=== PATIENT | female | born 1955 | race Caucasian/White ===

== ENCOUNTER → 2016-08-16 | Outpatient (CLI) | payer BC ==
--- NOTE | 2016-08-16 11:30 | NM ---
EXAMINATION TYPE: NM stress cardiolite complete DATE OF EXAM: 08/16/2016 11:21 AM COMPARISON: NONE HISTORY: Pain TECHNIQUE: After the intravenous administration of 10.15 mCi Tc 99m Sestamibi - Rest images obtained 35 minutes post injection. The patient exercised using a SOPHY protocol and 1 minute prior to peak exercise was injected with 26.3 mCi Tc 99m Sestamibi - Stress images obtained 35 minutes post inject ion. FINDINGS: Targeted heart rate was achieved during performance of the study. Review of stress and rest SPECT karissa ges demonstrates no distinct perfusion abnormality. Gated analysis shows normal wall motion with an estimated left ventricular ejection fraction of 64 %. IMPRESSION: No scintigraphic evidence for reversible ischemia
--- NOTE | 2016-08-16 13:40 | EST ---
DATE OF SERVICE: 08/16/16 AGE: 61Y SEX: F HT: 5'1" WT: 202 lbs. Protocol Josep: Other: X Stage: 2 Dur. of Exercise: 4:30 *Heart Rate Blood Pressure *Rest: 79 Rest: 142/74 * *Max. Achieved: 144 Maximum BP: 169/82 85% PMHR: 137 100% PMHR: 161 *METS: 6.4 INDICATIONS: MEDICATIONS: Baseline EKG revealed normal sinus rhythm without significant ST-T changes. There is some poor R wave progression over precordial leads, which may be related to lead placement. Patient walked for 4-1/2 minutes, achieved a maximum heart rate of 144 beats more than 85% of predicted maximal. Developed fatigue and shortness of breath, but did not have any angina or arrhythmia. Rare PVCs were noted. EKG did not reveal any clear cut ST segment changes to indicate ischemia. By EKG criteria, this is considered as a negative stress test with limited exercise capacity with mild resting EKG changes of a nonspecific type. The nuclear scan results, which are more pertinent, will be reported by the radiologist.
== END | disposition home or self-care (01) ==
LOC: RADNMMAIN 08:51
PROVIDERS: ATTEND Family Medicine
DX: R06.02 Shortness of breath (principal); R00.2 Palpitations; R07.9 Chest pain, unspecified; R94.31 Abnormal electrocardiogram [ECG] [EKG]
CPT/HCPCS: 93017; 78452; A9500

== ENCOUNTER → 2017-02-18 | Outpatient (CLI) | payer BC ==
--- NOTE | 2017-02-21 08:16 | MM ---
Reason for exam: screening (asymptomatic). Last mammogram was performed 1 year ago. History: Patient is postmenopausal. Family history of breast cancer in aunt at age 58, breast cancer in maternal cousin, and breast cancer in paternal cousin at age 28. Took hormonal contraceptives for 8 years. Taking estrogen for 2 years beginning at age 54. Taking progesterone for 2 years beginning at age 54. Physical Findings: A clinical breast exam by your physician is recommended on an annual basis and results should be correlated with mammographic findings. MG Screening Mammo w CAD Bilateral CC and MLO view(s) were taken. Prior study comparison: February 18, 2016, bilateral MG screening mammo w CAD. June 17, 2014, left breast MG work up mamm w CAD LT. The breast tissue is heterogeneously dense. This may lower the sensitivity of mammography. There is no discrete abnormality. No significant changes when compared with prior studies. ASSESSMENT: Negative, BI-RAD 1 RECOMMENDATION: Routine screening mammogram of both breasts in 1 year.
== END | disposition home or self-care (01) ==
LOC: RADMAMWWP 08:01
PROVIDERS: ATTEND Obstetrics & Gynecology
DX: Z12.31 Encounter for screening mammogram for malignant neoplasm of breast (principal); Z80.3 Family history of malignant neoplasm of breast

== ENCOUNTER 2017-08-04 10:29 | Day surgery (SDC) | payer BC ==
[2017-08-03 09:41] VITALS: BMI 38.7
[~2017-08-04 10:29] MED LIST: LACTATED RINGERS 1,000 ML IV SCH
[2017-08-04 10:47] VITALS: RESP 16; TEMP 97.7
[2017-08-04] MEDS ORDERED: LIDOCAINE 1% 20 ML VIAL (10MG/ML) FOR IV START INTRADERMA ONE (10:59)
[2017-08-04 11:03] LABS: Glucose,Whole Blood 96 mg/dL (75-99)
[2017-08-04] MEDS ORDERED: PROPOFOL 10 MG/ML 20 ML VIAL IV ONE (11:27)
[2017-08-04] MEDS ORDERED: LIDOCAINE 1% INJ 10MG/ML (20 ML MDV) ONE (11:27)
--- NOTE | 2017-08-04 11:46 | P.PCN ---
Date of Procedure: 08/04/17 Procedure(s) Performed: BRIEF HISTORY: Patient is a 62-year-old pleasant female, scheduled for an elective colonoscopy as a part of screening for colorectal neoplasia. Last colonoscopy was 10 years ago. PROCEDURE PERFORMED: Colonoscopy. PREOPERATIVE DIAGNOSIS: Screening for colon cancer. IV sedation per Anesthesia. PROCEDURE: After informed consent was obtained, the patient, was brought into the endoscopy unit. IV sedation was administered by Anesthesia under continuous monitoring. Digital rectal examination was normal. Initially the Olympus CF- 160 flexible video colonoscope was then inserted in the rectum, gradually advanced into the cecum without any difficulty. Careful examination was performed as the scope was gradually being withdrawn. Ileocecal valve and the appendiceal orifice were visualized and appeared normal. Prep was excellent. Mucosa of the cecum, ascending colon, transverse colon, descending colon, sigmoid colon, and rectum appeared normal. scattered sigmoid diverticulosis. Retroflexion was performed in the rectum and no lesions were seen. The patient tolerated the procedure well. IMPRESSION: Normal-appearing colon from rectum to cecum with no evidence of colorectal neoplasia . scattered sigmoid diverticulosis. RECOMMENDATIONS: Findings of this examination were discussed with the patient she was advised to have a repeat screening colonoscopy in 10 years.
[2017-08-04 12:22] VITALS: BP 141/62; PULSE 77
== END 2017-08-04 12:38 | disposition home or self-care (01) ==
LOC: ORWHC2ENDO 10:29
PROVIDERS: ATTEND Internal Medicine Gastroenterology
DX: Z12.11 Encounter for screening for malignant neoplasm of colon (principal); K57.30 Diverticulosis of large intestine without perforation or abscess without bleeding; I10 Essential (primary) hypertension; K21.9 Gastro-esophageal reflux disease without esophagitis; Z79.899 Other long term (current) drug therapy; Z79.1 Long term (current) use of non-steroidal anti-inflammatories (NSAID); Z88.1 Allergy status to other antibiotic agents
CPT/HCPCS: J2001; J2704; G0121; 45378

== ENCOUNTER → 2018-02-03 | Outpatient (CLI) | payer BC ==
[2018-02-03 16:29] LABS: HGB 13.5 gm/dL (11.4-16.0); MCH 27.4 pg (25.0-35.0); MCHC 32.9 g/dL (31.0-37.0); MCV 83.4 fL (80.0-100.0); Mean Platelet Volume 7.2; Platelet Count 337 k/uL (150-450); RBC 4.91 m/uL (3.80-5.40); RDW 14.3 % (11.5-15.5); WBC 8.9 k/uL (3.8-10.6)
[2018-02-03 16:35] LABS: ALT 36 U/L (9-52); AST 27 U/L (14-36); Albumin 4.4 g/dL (3.5-5.0); Alkaline Phosphatase 64 U/L (38-126); Anion Gap 9 mmol/L; Blood Urea Nitrogen 20 mg/dL (7-17); Calcium 9.7 mg/dL (8.4-10.2); Carbon Dioxide 29 mmol/L (22-30); Chloride 101 mmol/L (98-107); Glucose 84 mg/dL (74-99); Partial Thromboplastin Time 23.1 sec (22.0-30.0); Potassium 5.6 mmol/L (3.5-5.1); Prothrombin Time 9.5 sec (9.0-12.0); Sodium 139 mmol/L (137-145); Total Bilirubin 0.3 mg/dL (0.2-1.3); Total Protein 7.3 g/dL (6.3-8.2)
[2018-02-03 16:44] LABS: Appearance,Urine Cloudy (Clear); Bacteria,Urine Few /hpf; Bilirubin,Urine Negative (Negative); Blood,Urine Negative (Negative); Color,Urine Yellow; Glucose,Urine (UA) Negative (Negative); Hyaline Casts,Urine 3 /lpf (0-2); Ketones,Urine Negative (Negative); Leukocyte Esterase,Urine Small (Negative); Mucus,Urine Occasional /hpf; Nitrite,Urine Negative (Negative); Protein,Urine Trace (Negative); RBC,Urine 3 /hpf (0-5); Specific Gravity,Urine 1.023 (1.001-1.035); Squamous Epithelial Cell,Urine 3 /hpf (0-4); Urobilinogen,Urine <2.0 mg/dL (<2.0); WBC,Urine 3 /hpf (0-5)
== END | disposition home or self-care (01) ==
LOC: LABPAT 15:23
PROVIDERS: ATTEND Orthopaedic Surgery Sports Medicine
DX: Z01.812 Encounter for preprocedural laboratory examination (principal)
CPT/HCPCS: 80053; 81001; 85027; 85610; 85730; 87070

== ENCOUNTER 2018-02-16 11:01 | Inpatient (IN) | payer BC ==
[2018-02-06 16:27] VITALS: BMI 40.0
[~2018-02-16 11:01] MED LIST changes: +ACETAMINOPHEN TAB 500 MG TAB PO ONE; +DEXAMETHASONE SOD PHOSPHATE 10 MG/ML 1 ML VIAL IV ONE; +HYDROmorphone 0.5 MG/0.5 ML SYRINGE IVP PRN; -LACTATED RINGERS 1,000 ML IV SCH; +ONDANSETRON 4 MG/2 ML VIAL IVP ONE; +TRANEXAMIC ACID 1,000 MG in SODIUM CHLORIDE 0.9% 50 ML IVPB ONE; +ceFAZolin IN SWFI 2 GM/20 ML SYRINGE IVP ONE
[2018-02-16] MEDS ORDERED: LIDOCAINE 1% 20 ML VIAL (10MG/ML) FOR IV START INTRADERMA ONE (11:33)
[2018-02-16] MEDS ORDERED: MIDAZOLAM 2 MG/2 ML VIAL ONE ×2 (12:46→12:59)
[2018-02-16] MEDS: LACTATED RINGERS 1,000 ML IV SCH ×2 (12:56→17:48)
[2018-02-16] MEDS ORDERED: fentaNYL (PF) 50 MCG/ML 2 ML AMP ONE (12:59)
[2018-02-16] MEDS ORDERED: SODIUM CHLORIDE 0.9% 100 ML BAG ONE (12:59)
[2018-02-16] MEDS ORDERED: PROPOFOL 10 MG/ML 20 ML VIAL IV ONE (12:59)
[2018-02-16] MEDS ORDERED: diphenhydrAMINE 50 MG/ML 1 ML VIAL ONE (12:59)
[2018-02-16] MEDS ORDERED: TRANEXAMIC ACID 1,000 MG/10 ML VIAL ONE (12:59)
[2018-02-16] MEDS: ROPIVACAINE 246.25 MG, EPINEPHrine 0.5 MG, KETOROLAC 30 MG, cloNIDine HCL/PF 80 MCG, WA... MISCELLANE ONE ×15 (13:40→14:28)
[2018-02-16] MEDS ORDERED: ceFAZolin 3,000 MG in SODIUM CHLORIDE 0.9% IRRIGATIO 3,000 ML IRRIGATION ONE (13:40)
[2018-02-16] MEDS ORDERED: TEMAZEPAM 15 MG CAP PO PRN (15:10)
[2018-02-16] MEDS ORDERED: HYDROmorphone 0.5 MG/0.5 ML SYRINGE IVP PRN ×3 (15:10)
[2018-02-16] MEDS ORDERED: ACETAMINOPHEN TAB 325 MG TAB PO PRN (15:10)
[2018-02-16] MEDS ORDERED: DIAZEPAM 5 MG TAB PO PRN (15:10)
[2018-02-16] MEDS ORDERED: NALOXONE 0.4 MG/ML 1 ML VIAL IV PRN (15:10)
[2018-02-16] MEDS ORDERED: MAGNESIUM HYDROXIDE 2,400 MG/10 ML CUP PO PRN (15:10)
[2018-02-16] MEDS ORDERED: NA PHOS,M-B/NA PHOS,DI-BA 133 ML ENEMA RECTAL PRN (15:10)
[2018-02-16] MEDS ORDERED: BISACODYL 10 MG SUPP RECTAL PRN (15:10)
[2018-02-16] MEDS ORDERED: traMADol 50 MG TAB PO PRN (15:10)
[2018-02-16] MEDS ORDERED: ONDANSETRON 4 MG/2 ML VIAL IVP PRN (15:10)
[2018-02-16] MEDS ORDERED: HYDROcodone/APAP 7.5-325MG 1 EACH TAB PO PRN (15:10)
[2018-02-16] MEDS ORDERED: HYDROmorphone 1 MG/ML 1 ML SYRINGE IVP ONE (15:16)
[2018-02-16] MEDS ORDERED: diphenhydrAMINE 50 MG/ML 1 ML VIAL IVP ONE (15:28)
--- NOTE | 2018-02-16 15:34 | XR ---
EXAMINATION TYPE: XR knee limited RT DATE OF EXAM: 02/16/2018 CLINICAL HISTORY: Right knee pain and arthritis status post total knee replacement. TECHNIQUE: Portable AP and crosstable lateral views of the right knee are obtained immediately posto peratively. COMPARISON: Right knee x-ray January 30, 2014 FINDINGS: Metallic hardware from total right knee arthroplasty is seen and appears satisfactory in a lignment and position. There is evidence of recent surgery with diffuse subcutaneous gas anteriorly and superiorly noted. IMPRESSION: METALLIC HARDWARE FROM TOTAL RIGHT KNEE ARTHROPLASTY IS SATISFACTORY IN ALIGNMENT.
[2018-02-16] MEDS ORDERED: MEPERIDINE 50 MG/ML SYRINGE IVP ONE ×2 (15:41→15:46)
--- NOTE | 2018-02-16 16:06 | OP ---
OPERATIVE REPORT PROCEDURE: 02/16/2018. SURGEON: Ernesto Franklin M.D. PRIME MINISTER: Ac POZO. PREOPERATIVE DIAGNOSIS: Right knee osteoarthrosis. POSTOPERATIVE DIAGNOSIS: Right knee osteoarthrosis. OPERATION: Right total knee arthroplasty. ANESTHESIA: Spinal with sedation. ESTIMATED BLOOD LOSS: 100 mL. TOURNIQUET TIME: 53 minutes at 250 mmHg. COMPLICATIONS: None apparent. DRAINS: None. DISPOSITION: Postanesthesia care unit. INDICATIONS: Katie is a 62-year-old female with longstanding history of right knee pain. History and physical examination are consistent with advanced right knee osteoarthrosis. She has been through significant nonoperative management up to this point. Further treatment options were discussed and she has decided to go for the right total knee arthroplasty. The risks of procedure were discussed with her in detail. These risks include, but are not limited to risk of infection, nerve damage, bleeding, pain and risk of deep vein thrombosis which could lead to fatal pulmonary embolism. There is also risk of loosening of the implant which could require revision operation. The patient understands these risks. All of her questions with regards to the procedure were answered to her satisfaction. Appropriate informed consent was obtained. DESCRIPTION OF THE PROCEDURE: The patient was identified in the preoperative holding area. Surgical sites marked by both the patient and myself. She was given 2 g of Ancef IV for prophylactic purposes. She was then transferred to the operative suite. She was placed supine on the operative table. Spinal anesthetic was administered and dosed per the anesthesia without apparent complication. Examination under anesthesia was then performed. The patient had near full extension. She had 100 degrees of flexion in the medial collateral ligament, lateral collateral ligament. Posterior cruciate ligaments were stable. Tourniquet was then placed high on the right upper thigh well-padded in preparation for surgery. The patient's right lower extremity was then prepped and draped in usual sterile fashion. Standard surgical pause undertaken to ensure that we were operating on the correct site and that appropriate preoperative antibiotics were given. All staff in the room in agreement and we proceeded. The outlines of the patella were marked with surgical pen. A planned 12 cm vertical incision centered over the patella and was marked surgical pen. The leg was then exsanguinated with an Esmarch dressing. The knee was then flexed and tourniquet was inflated to 250 mmHg. The total tourniquet time for the procedure was 53 minutes. Incision was then made with a 10 blade scalpel. Dissection carried down sharply to the overlying fascia. Great care was taken to minimize the skin flaps. The knee was then exposed. Using a standard medial parapatellar approach, a small cuff of quadriceps tendon was left for suturing. She was in a bit of varus preoperatively. A standard medial release was then made. Superficial medial collateral ligaments was dissected off of the bone around the posterior aspect of the proximal tibia. The medial meniscus was then excised as well. The lateral meniscus was also released anteriorly. The leg was then externally rotated. The patella was everted. The knee was flexed. The retractors were then placed to protect the collateral ligaments. I then proceeded to remove the infrapatellar fat pad. This was excised sharply tangentially with fibers of the patellar tendon. I then proceeded to remove peripheral osteophytes. This was done with a rongeur. I then proceeded with the distal femoral resection. She did have near full extension. A planned 9 mm resection was then done. The femoral canal was then entered in the midline of the femur approximately 10 mm anterior to the origin of the posterior cruciate ligament. The britney was then advanced down the center of the femur and placed intramedullary. Based on preoperative radiographs, the angle between the anatomic and mechanical axis of the femur was approximately 4 to 5 degrees. The valgus angle distal femoral cutting guide was then set at 4 degrees for the right knee. The distal femoral cutting guide was then advanced over the intramedullary britney. This was seated firmly against the femur. I then as mentioned planned to take 9 mm off the distal femur. The cutting block was then secured onto the femur with pins. The jig was removed and the distal femoral cut was made through the slot of the block. The pins were then removed. The distal femoral cutting block was removed. The accuracy of this femoral cuts was checked with 2 flat bars. I then proceed to femoral sizing. The posterior referencing sizing guide was held firmly against the resected distal surface of the femur. Posterior condyles were resting on the posterior plane of the guide. The sizing stylus was then placed onto the anterior femur. The size was measured as a size 6. I then assessed for femoral rotation. The plan was for 3 degrees of external rotation. Three degrees of external rotation was placed onto the jig. These holes were then marked. I then confirmed the rotation by 3 separate methods. This was done using epicondylar axis as well as [place] line and posterior referencing. It was deemed that the external rotation was proper. I then went forward with placing the femoral cutting block. This was placed over the over the previously placed pin holes. The Beny wing was then placed on the anterior slots to ensure that we would not notch the anterior femur with the anterior femoral cut. I then proceed with the anterior femoral cut. This was flush with the anterior cortex of the femur. Posterior cuts were then made followed by the anterior chamfer cut, then the posterior chamfer cut. The cutting block was then removed. Throughout the resection, the collateral ligaments were protected with retractors. I then placed a trial size 6 femur. It was a slightly wide mediolateral but the narrow was appropriate and fit flush with the distal end of the femur. The drill holes were then made. I then proceeded with the tibial cut. I planned for cruciate retaining knee. The guide was placed and set for varus valgus and for slope. The height was set for approximate 2 mm resection from the medial tibial plateau which was the lower side. I was happy with the alignment amount of resection. The cutting block was then pinned to the proximal tibia. The alignment britney was removed and the proximal tibia was resected with a reciprocating saw. Again this was done with retractors protecting the collateral ligaments as well as the posterior cruciate ligament. I then proceeded to evaluate the flexion extension gaps. A 10 mm block was then placed. The flexion-extension gaps were equal. I then proceeded to resection of posterior osteophytes. She had very minimal posterior osteophytes. This was done using a curved osteotome. This resected the posterior osteophytes and posterior capsule stripping was also done off the posterior aspect of the femur at this time. The osteophytes were removed. I then proceeded with resection of the patella. The thickness of patella was measured using the caliper. The thickness was 22 mm. The thickness of the anticipated patellar dome was taken into account. The resection was then performed and confirmed to be equal in 4 quadrants using a caliper. Approximately 14 mm of bone remained after the resection. A 29 x 8 mm standard patella was then placed. The holes were then drilled. The trial was then placed. I then proceeded with the sizing the tibial plate. A size C tibial plate fit very nicely. I then placed the trial femur in the tibial tray and patellar button. A 10 mm trial tibial insert was also placed. The components fit nice very nicely. She had full flexion and extension. The extension and flexion gaps were equal and stable with varus and valgus stress. The patella tracked appropriately. Tibial tray rotation was marked with a Bovie. This was externally rotated properly. I then proceed with tibial preparation. I first drilled the femoral holes and removed femoral component. The tibial tray was then set for proper external rotation as well as mediolateral placement onto the tibia. It was then pinned into place. I then proceeded with punching the keel. I then decided to proceed with cementing of all our components. The knee was thoroughly irrigated with sterile saline solution via pulse lavage. The lateral geniculate artery was identified and cauterized. All blood was removed from the bone of the tibia femur and patella with pulse lavage. I then proceed with cementing. Two packs of antibiotic bone cement prepared on the back table by the instructor adjunct surgical technician. I then proceed with cementing the tibia first. The cement was impacted into the keel as well as deeply seated in the bone. A second coat of cement was then placed. The tibia was then impacted into place. Excess cement was removed with [place]'s and jokers. I then proceed with cementing the femoral component. The femoral component was also cemented using 2 using standard technique. Excess cement was removed. A 10 mm trial insert was placed into the knee. It was brought into full extension with a constant axial load placed until the cement had hardened. The patellar component was then cemented. This was held firmly with a compressive device until the cement had dried. When the cement had dried, the knee was taken out of extension. All excess cement was removed from around the prosthesis. I then trialed the knee with a 10 mm insert. The flexion-extension gaps were appropriate. The knee came in the knee was stable with a 10 mm insert. It came into full extension. I decided to go forward with the 10 mm cross-linked cruciate-retaining tibial insert. Polyethylene was then placed onto the tibial tray and locked into place. The knee was then reduced. The knee was again further irrigated with sterile saline solution with antibiotic added. The tourniquet was then deflated. Total tourniquet time for the procedure was 53 minutes at 250 mmHg. Final components were Erickson Persona size 6 narrow cruciate retained femoral component, a size C tibial tray, 10 mm medial congruent cruciate-retaining polyethylene insert and a 29 x 8 mm patella. I then proceeded with closure. Again, the knee was thoroughly irrigated. The quadriceps tendon and the medial retinaculum were reapproximated with #2 Ethibond suture. The extensor mechanism was then closed with a running #2 Quill suture. Subcutaneous tissues were then closed with 2-0 Vicryl interrupted suture. The skin was closed with a running 3-0 Quill suture. Dermabond was applied to the incision. Sterile compressive dressing was then applied. All sponge and needle counts were deemed correct prior to closure. The patient tolerated the procedure without apparent complication. She was transferred to the recovery room in stable condition. MMODL / IJN: [id number] /
[2018-02-16] MEDS ORDERED: LACTATED RINGERS 1,000 ML IV ONE (16:39)
[2018-02-16] MEDS: HYDROcodone/APAP 7.5-325MG 1 EACH TAB PO PRN ×2 (17:20→22:31)
[2018-02-16 19:21] LABS: Basophils % (A) 0 %; Eosinophils % (A) 0 %; HCT 37.9 % (34.0-46.0); HGB 12.6 gm/dL (11.4-16.0); Lymphocytes # (A) 0.6 k/uL (1.0-4.8); Lymphocytes % (A) 4 %; MCH 28.1 pg (25.0-35.0); MCHC 33.3 g/dL (31.0-37.0); MCV 84.4 fL (80.0-100.0); Mean Platelet Volume 7.3; Monocytes # (A) 0.2 k/uL (0-1.0); Monocytes % (A) 2 %; Neutrophils % (A) 94 %; Platelet Count 317 k/uL (150-450); RBC 4.49 m/uL (3.80-5.40); RDW 14.6 % (11.5-15.5); WBC 14.9 k/uL (3.8-10.6)
[2018-02-16 19:35] LABS: Anion Gap 6 mmol/L; Blood Urea Nitrogen 16 mg/dL (7-17); Carbon Dioxide 27 mmol/L (22-30); Chloride 104 mmol/L (98-107); Glucose 163 mg/dL (74-99); Potassium 5.3 mmol/L (3.5-5.1); Sodium 137 mmol/L (137-145)
[2018-02-16 20:46] LABS: Appearance,Urine Clear (Clear); Bilirubin,Urine Negative (Negative); Blood,Urine Negative (Negative); Color,Urine Yellow; Glucose,Urine (UA) Negative (Negative); Ketones,Urine 1+ (Negative); Leukocyte Esterase,Urine Negative (Negative); Nitrite,Urine Negative (Negative); Protein,Urine Trace (Negative); Specific Gravity,Urine 1.018 (1.001-1.035); Urobilinogen,Urine <2.0 mg/dL (<2.0)
[2018-02-16] MEDS: ASPIRIN 325 MG TAB PO SCH (21:22)
[2018-02-16] MEDS: SENNOSIDES-DOCUSATE SODIUM 1 EACH TAB PO SCH (21:22)
[2018-02-16] MEDS: SULFAMETHOX-TMP 800-160MG 1 EACH TAB PO SCH (21:23)
[2018-02-16] MEDS: ceFAZolin IN SWFI 2 GM/20 ML SYRINGE IVP SCH (21:23)
[2018-02-17] MEDS: LACTATED RINGERS 1,000 ML IV SCH ×4 (01:43→23:14)
[2018-02-17] MEDS: HYDROcodone/APAP 7.5-325MG 1 EACH TAB PO PRN ×3 (04:52→15:38)
[2018-02-17] MEDS: ceFAZolin IN SWFI 2 GM/20 ML SYRINGE IVP SCH (04:53)
[2018-02-17] MEDS: ASPIRIN 325 MG TAB PO SCH ×2 (08:33→23:13)
[2018-02-17] MEDS: SULFAMETHOX-TMP 800-160MG 1 EACH TAB PO SCH ×2 (08:33→23:13)
--- NOTE | 2018-02-17 08:34 | P.DS ---
Providers Date of admission: 02/16/18 11:01 Expected date of discharge: 02/17/18 Attending physician: Ernesto Franklin Consults: 02/16/18 15:10 Consult Physician Routine Consulting Provider: Nestor Allen Consult Reason/Comments: post op medical management Do you want consulting provider notified?: Yes Primary care physician: Lanette Luna - Discharge Diagnosis(es) (1) Primary osteoarthritis of right knee Current Visit: Yes Status: Acute (2) S/P total knee arthroplasty Current Visit: Yes Status: Acute Hospital Course: This is a 62-year-old female with known history of degenerative arthritis of the right knee. The patient presents for evaluation. After discussion and consideration patient elects to proceed with total knee arthroplasty. The patient is seen preoperatively by Dr. Franklin and medically cleared for surgery by their primary care physician. Patient is admitted to [facility] on 02/16/2018 for total knee arthroplasty. The procedures performed without complication or sequelae. The patient is doing well postoperatively. Labs and vital signs are stable on day of discharge. On day of discharge patient's knee incision is healing well. There is minimal erythema. There is no drainage noted at this time. There is minimal soft tissue swelling to the knee. Patient has full foot and ankle motion without difficulty or pain. Neurovascular status to the right lower extremity is intact. Patient is discharged home in good condition. Please see med rec for accurate list of home medications. Plan - Discharge Summary Discharge Rx Participant: Yes New Discharge Prescriptions: New Aspirin 325 mg PO BID #60 tab Docusate [Colace] 100 mg PO BID #60 capsule HYDROcodone/APAP 7.5-325MG [Sargent 7.5-325] 1 - 2 tab PO Q6HR PRN #60 tab PRN Reason: Pain No Action Omeprazole 20 mg PO HS Citalopram Hydrobromide [CeleXA] 20 mg PO HS Ibuprofen 800 mg PO BID PRN PRN Reason: Pain Glucosamine/Chondr Amin A Sod [Osteo Bi-Flex Caplet] 1 tab PO DAILY Hydrochlorothiazide 12.5 mg PO DAILY Albuterol Inhaler [Ventolin Hfa Inhaler] 1 - 2 puff INHALATION RT-Q6H PRN PRN Reason: Shortness Of Breath Multivit-Min/Iron/Folic/Lutein [Centrum Silver Women Tablet] 1 tab PO DAILY Calcium Carbonate/Vitamin D3 [Calcium 600-Vit D3 200 Tablet] 1 tab PO BID Biotin 5 mg PO DAILY Acetaminophen [Tylenol Arthritis] 650 mg PO BID PRN PRN Reason: pain Sulfamethox-Tmp 800-160Mg [Bactrim DS 800-160 mg] 1 tab PO Q12HR Discharge Medication List Albuterol Inhaler [Ventolin Hfa Inhaler] 1 - 2 puff INHALATION RT-Q6H PRN [History] Citalopram Hydrobromide [CeleXA] 20 mg PO HS 08/03/17 [History] Glucosamine/Chondr Amin A Sod [Osteo Bi-Flex Caplet] 1 tab PO DAILY 08/03/17 [ History] Hydrochlorothiazide 12.5 mg PO DAILY 08/03/17 [History] Ibuprofen 800 mg PO BID PRN 08/03/17 [History] Omeprazole 20 mg PO HS 08/03/17 [History] Acetaminophen [Tylenol Arthritis] 650 mg PO BID PRN 02/06/18 [History] Biotin 5 mg PO DAILY 02/06/18 [History] Calcium Carbonate/Vitamin D3 [Calcium 600-Vit D3 200 Tablet] 1 tab PO BID [History] Multivit-Min/Iron/Folic/Lutein [Centrum Silver Women Tablet] 1 tab PO DAILY 09/25 [History] Sulfamethox-Tmp 800-160Mg [Bactrim DS 800-160 mg] 1 tab PO Q12HR 02/06/18 [ History] Aspirin 325 mg PO BID #60 tab 02/16/18 [Rx] Docusate [Colace] 100 mg PO BID #60 capsule 02/16/18 [Rx] HYDROcodone/APAP 7.5-325MG [Sargent 7.5-325] 1 - 2 tab PO Q6HR PRN #60 tab [Rx] Follow up Appointment(s)/Referral(s): Ernesto Franklin MD [STAFF PHYSICIAN] - 2 Weeks Activity/Diet/Wound Care/Special Instructions: Keep wound clean and dry Take meds as directed Follow-up with Dr. Franklin in office Weight bear as tolerated May shower in 3 days if no bleeding Discharge Disposition: HOME WITH HOME HEALTH SERVICES
[2018-02-17 08:44] LABS: HCT 32.9 % (34.0-46.0); HGB 11.3 gm/dL (11.4-16.0); MCH 28.5 pg (25.0-35.0); MCHC 34.3 g/dL (31.0-37.0); MCV 83.1 fL (80.0-100.0); Mean Platelet Volume 7.8; Platelet Count 253 k/uL (150-450); RBC 3.96 m/uL (3.80-5.40); RDW 14.4 % (11.5-15.5); WBC 10.6 k/uL (3.8-10.6)
[2018-02-17 09:30] LABS: Band Neutrophils % 2 %; Lymphocytes # (M) 0.95 k/uL (1.0-4.8); Monocytes # (M) 0.74 k/uL (0-1.0); Neutrophils % (M) 82 %; Nucleated Red Blood Cells 0 /100 WBC (0-0); Total Cells Counted 100
[2018-02-17] MEDS: hydrOXYzine PAMOATE 25 MG CAP PO PRN ×3 (10:30→19:39)
[2018-02-17] MEDS: MULTIVITAMINS, THERA 1 EACH TAB PO SCH (11:49)
--- NOTE | 2018-02-17 14:47 | P.CONS ---
History of Present Illness - Reason for Consult Consult date: 02/17/18 Medical management of hypertension - Chief Complaint Right knee arthroplasty elective - History of Present Illness Patient is a 62-year-old female with a known history of hypertension, GERD and previous history of smoking as well as osteoarthritis was admitted to the hospital for elective right total arthroplasty. Patient tolerated the procedure very well. Otherwise patient still complaining of pain in his fairly controlled with pain medications. No fever no chills. Patient did have some dizziness with walking this morning otherwise currently denied any dizziness or lightheadedness. No nausea vomiting or abdominal pain. Tolerating oral diet. No chest pain or short of breath. No nausea vomiting. No fever no chills. Blood pressure is controlled. Review of Systems Constitutional: Patient denies any fever or chills . No generalized weakness or weight loss. Abdomen: Patient denied nausea vomiting and diarrhea and abdominal pain. Cardiovascular: Patient denies any chest pain or short of breath no palpitations. Respiratory: patient denied any cough is from production. No shortness of breath Neurologic: Patient denied any numbness or tingling headache. Musculoskeletal: Patient denies any complaints of joint swelling or deformity. Right knee pain and decreased range of motion Skin: Negative Psychiatric: Negative Endocrine: No heat or cold intolerance. No recent weight gain. Genitourinary: No dysuria or hematuria. All other 14 point ROS negative except the above Past Medical History Past Medical History: GERD/Reflux, Hypertension, Osteoarthritis (OA) Additional Past Medical History / Comment(s): current UTI, sciatica,torn meniscus left knee approx 2014 History of Any Multi-Drug Resistant Organisms: None Reported Past Surgical History: Orthopedic Surgery Additional Past Surgical History / Comment(s): Rt ovary removed,rt knee arthroscopy,rt rot cuff Past Anesthesia/Blood Transfusion Reactions: No Reported Reaction Additional Past Anesthesia/Blood Transfusion Reaction / Comm: no hx blood transfusion Past Psychological History: Anxiety Smoking Status: Former smoker Past Alcohol Use History: Occasional Additional Past Alcohol Use History / Comment(s): smoked while in college <1ppd Past Drug Use History: None Reported - Past Family History Mother Family Medical History: Cancer Additional Family Medical History / Comment(s): kidney Father Family Medical History: Cancer Additional Family Medical History / Comment(s): lung Medications and Allergies Home Medications Medication Instructions Recorded Confirmed Type Albuterol Inhaler [Ventolin Hfa 1 - 2 puff INHALATION RT-Q6H PRN 08/03/17 History Inhaler] Citalopram Hydrobromide [CeleXA] 20 mg PO HS 08/03/17 02/16/18 History Glucosamine/Chondr Amin A Sod [Osteo 1 tab PO DAILY 08/03/17 02/16/18 History Bi-Flex Caplet] Hydrochlorothiazide 12.5 mg PO DAILY 08/03/17 02/16/18 History Ibuprofen 800 mg PO BID PRN 08/03/17 02/16/18 History Omeprazole 20 mg PO HS 08/03/17 02/16/18 History Acetaminophen [Tylenol Arthritis] 650 mg PO BID PRN 02/06/18 02/16/18 History Biotin 5 mg PO DAILY 02/06/18 02/16/18 History Calcium Carbonate/Vitamin D3 1 tab PO BID 02/06/18 02/16/18 History [Calcium 600-Vit D3 200 Tablet] Multivit-Min/Iron/Folic/Lutein 1 tab PO DAILY 02/06/18 02/16/18 History [Centrum Silver Women Tablet] Sulfamethox-Tmp 800-160Mg [Bactrim 1 tab PO Q12HR 02/06/18 02/16/18 History DS 800-160 mg] Aspirin 325 mg PO BID #60 tab 02/16/18 Rx Docusate [Colace] 100 mg PO BID #60 capsule 02/16/18 Rx HYDROcodone/APAP 7.5-325MG [[place] 1 - 2 tab PO Q6HR PRN #60 tab 02/16/18 Rx 7.5-325] Allergies Allergy/AdvReac Type Severity Reaction Status Date / Time erythromycin base Allergy Rash/Hives Verified 02/16/18 16:53 Physical Exam Vitals: Vital Signs Temp Pulse Pulse Resp BP BP Pulse Ox 02/17/18 07:00 98.4 F 94 17 132/88 94 L 02/16/18 23:44 18 02/16/18 23:30 99.9 F H 72 18 110/53 95 02/16/18 19:33 98.2 F 74 18 118/74 95 02/16/18 16:56 98.7 F 83 16 134/84 94 L 02/16/18 16:30 77 16 109/65 97 02/16/18 16:15 82 18 126/65 96 02/16/18 16:00 81 16 118/67 96 02/16/18 15:45 91 16 138/76 96 02/16/18 15:30 82 16 140/80 94 L 02/16/18 15:15 84 18 131/76 95 02/16/18 15:10 89 16 121/81 94 L 02/16/18 11:29 99.0 F 78 16 151/70 98 Intake and Output 02/16/18 02/17/18 02/17/18 22:59 06:59 14:59 Intake Total 1050 Output Total 400 Balance 650 Intake: IV 450 Intake, IV Titration 600 Amount Lactated Ringers 1,000 ml 600 @ 100 mls/hr IV .Q10H NAN Rx#:[id number] Output: Urine 400 Other: Voiding Method Toilet # Voids 2 Weight 96.162 kg PHYSICAL EXAMINATION: Patient is lying in the bed comfortably, no acute distress, awake alert and oriented.. HEENT: Normocephalic. Neck is supple. Pupils reactive. Nostrils clear. Oral cavity is moist. Ears reveal no drainage. Neck reveals no JVD, carotid bruits, or thyromegaly. CHEST EXAMINATION: Trachea is central. Symmetrical expansion. Lung mercedes clear to auscultation and percussion. CARDIAC: Normal S1, S2 with no gallops. No murmurs ABDOMEN: Soft. Bowel sounds normal. No organomegaly. No abdominal bruits. Extremities: reveal no edema. No clubbing or cyanosis Neurologically awake, alert, oriented x3 with well-coordinated movements. No focal deficits noted Skin: No rash or skin lesions. Psychiatric: Coperative. Nonsuicidal Musculoskeletal: No joint swelling or deformity. Right knee surgical site intact. Patient is an almost due to pain. Results CBC & Chem 7: 02/17/18 07:53 02/16/18 18:49 Labs: Abnormal Lab Results - Last 24 Hours (Table) 02/16/18 02/16/18 02/16/18 Range/Units 18:49 18:49 20:34 WBC 14.9 H (3.8-10.6) k/uL Hgb (11.4-16.0) gm/dL Hct (34.0-46.0) % Neutrophils # 14.0 H (1.3-7.7) k/uL Neutrophils # (Manual) (1.3-7.7) k/uL Lymphocytes # 0.6 L (1.0-4.8) k/uL Lymphocytes # (Manual) (1.0-4.8) k/uL Potassium 5.3 H (3.5-5.1) mmol/L Glucose 163 H (74-99) mg/dL Urine Protein Trace H (Negative) Urine Ketones 1+ H (Negative) 02/17/18 Range/Units 07:53 WBC (3.8-10.6) k/uL Hgb 11.3 L (11.4-16.0) gm/dL Hct 32.9 L (34.0-46.0) % Neutrophils # (1.3-7.7) k/uL Neutrophils # (Manual) 8.90 H (1.3-7.7) k/uL Lymphocytes # (1.0-4.8) k/uL Lymphocytes # (Manual) 0.95 L (1.0-4.8) k/uL Potassium (3.5-5.1) mmol/L Glucose (74-99) mg/dL Urine Protein (Negative) Urine Ketones (Negative) Microbiology - Last 24 Hours (Table) 02/16/18 20:34 Urine Culture - Preliminary Urine,Clean Catch Assessment and Plan Assessment: Status post right total knee arthroplasty Leukocytosis. Likely reactive. Resolved now. osteoarthritis History of torn meniscus left knee in 2014 Anxiety Previous history of smoking Hypertension controlled. Blood pressure medications on hold due to postoperative hypotension as expected GERD Recent UTI currently on antibiotic course Mild hyperkalemia likely due to Bactrim Morbid obesity BMI 40.1 DVT prophylaxis Plan: Patient will be continued on pain management and bowel regimen and encourage ambulation and incentive spirometry continue with the DVT prophylaxis. Repeat BMP tomorrow. We will continue to follow closely. Continue to hold hydrochlorothiazide. Further conditions based on the clinical course. Thank you for your consult Time with Patient: Greater than 30
[2018-02-17] MEDS ORDERED: HYDROcodone/APAP 7.5-325MG 1 EACH TAB PO PRN (15:14)
[2018-02-17] MEDS: SENNOSIDES-DOCUSATE SODIUM 1 EACH TAB PO SCH (23:13)
[2018-02-18] MEDS: hydrOXYzine PAMOATE 25 MG CAP PO PRN ×3 (00:08→10:24)
[2018-02-18] MEDS: HYDROcodone/APAP 7.5-325MG 1 EACH TAB PO PRN ×3 (00:13→10:23)
[2018-02-18] MEDS: LACTATED RINGERS 1,000 ML IV SCH ×2 (05:59→09:33)
[2018-02-18 07:22] LABS: Anion Gap 8 mmol/L; Blood Urea Nitrogen 9 mg/dL (7-17); Calcium 8.9 mg/dL (8.4-10.2); Carbon Dioxide 27 mmol/L (22-30); Chloride 105 mmol/L (98-107); Glucose 95 mg/dL (74-99); Potassium 4.6 mmol/L (3.5-5.1); Sodium 140 mmol/L (137-145)
[2018-02-18 08:13] VITALS: BP 173/84; PULSE 71; RESP 16; TEMP 98.5
[2018-02-18] MEDS: SULFAMETHOX-TMP 800-160MG 1 EACH TAB PO SCH (09:34)
[2018-02-18] MEDS: ASPIRIN 325 MG TAB PO SCH (09:34)
[2018-02-18] MEDS: MULTIVITAMINS, THERA 1 EACH TAB PO SCH (13:07)
--- NOTE | 2018-02-19 01:15 | P.PN ---
Subjective Progress Note Date: 02/18/18 Principal diagnosis: Right knee arthroplasty Patient is a 62-year-old female with a known history of hypertension, GERD and previous history of smoking as well as osteoarthritis was admitted to the hospital for elective right total arthroplasty. Patient tolerated the procedure very well. Otherwise patient still complaining of pain in his fairly controlled with pain medications. No fever no chills. Patient did have some dizziness with walking this morning otherwise currently denied any dizziness or lightheadedness. No nausea vomiting or abdominal pain. Tolerating oral diet. No chest pain or short of breath. No nausea vomiting. No fever no chills. Blood pressure is controlled. 02/18/2018 Patient denied any complaints of right knee pain now. Potassium normalized. Otherwise no complaints of chest pain or shortness of breath. No acute overnight issues. Patient is being discharged home today. All other review of systems negative except the above Discharge medication reconciliation was done. Objective - Vital Signs Vital signs: Vital Signs Temp 98.5 F 02/18/18 07:00 Pulse 71 02/18/18 07:00 Resp 16 02/18/18 07:00 BP 173/84 02/18/18 07:00 Pulse Ox 93 L 02/18/18 07:00 Intake & Output 02/17/18 02/18/18 02/18/18 18:59 06:59 18:59 Intake Total 400 600 Output Total 400 Balance 400 200 Weight 96.162 kg Intake: Intake, IV Titration 400 Amount Lactated Ringers 1,000 ml 400 @ 100 mls/hr IV .Q10H NAN Rx#:[id number] Oral 600 Output: Urine 400 Other: Voiding Method Toilet # Voids 3 - Exam PHYSICAL EXAMINATION: Patient is lying in the bed comfortably, no acute distress, awake alert and oriented.. HEENT: Normocephalic. Neck is supple. Pupils reactive. Nostrils clear. Oral cavity is moist. Ears reveal no drainage. Neck reveals no JVD, carotid bruits, or thyromegaly. CHEST EXAMINATION: Trachea is central. Symmetrical expansion. Lung mercedes clear to auscultation and percussion. CARDIAC: Normal S1, S2 with no gallops. No murmurs ABDOMEN: Soft. Bowel sounds normal. No organomegaly. No abdominal bruits. Extremities: reveal no edema. No clubbing or cyanosis Neurologically awake, alert, oriented x3 with well-coordinated movements. No focal deficits noted Skin: No rash or skin lesions. Psychiatric: Coperative. Nonsuicidal Musculoskeletal: No joint swelling or deformity. Right knee surgical site intact. Normal range of motion. - Labs CBC & Chem 7: 02/17/18 07:53 02/18/18 06:12 Labs: Microbiology - Last 24 Hours (Table) 02/16/18 20:34 Urine Culture - Final Urine,Clean Catch Assessment and Plan Assessment: Status post right total knee arthroplasty Leukocytosis. Likely reactive. Resolved now. osteoarthritis History of torn meniscus left knee in 2014 Anxiety Previous history of smoking Hypertension controlled. Blood pressure medications on hold due to postoperative hypotension as expected GERD Recent UTI currently on antibiotic course Mild hyperkalemia likely due to Bactrim. Resolved Morbid obesity BMI 40.1 DVT prophylaxis Plan: Patient will be continued on pain management and bowel regimen and encourage ambulation and incentive spirometry continue with the DVT prophylaxis. Repeat BMP reviewed. Continue hydrochlorothiazide up on discharge. Follow-up with primary care physician in 1-3 days. Time with Patient: Greater than 30
== END 2018-02-18 13:44 | disposition home health service (06) | DRG 470 ==
LOC: 2ORMAIN 11:01 → 3SUR 16:47
PROVIDERS: ADMIT Orthopaedic Surgery Sports Medicine; ATTEND Orthopaedic Surgery Sports Medicine
PROC: 0SRC0J9 Replacement of Right Knee Joint with Synthetic Substitute, Cemented, Open Approach (ICD-10-PCS; principal; 2018-02-16 13:30)
DX: M17.0 Bilateral primary osteoarthritis of knee (principal); Z68.41 Body mass index [BMI] 40.0-44.9, adult; N39.0 Urinary tract infection, site not specified; E66.01 Morbid (severe) obesity due to excess calories; E87.5 Hyperkalemia; I95.9 Hypotension, unspecified; T37.0X5A Adverse effect of sulfonamides, initial encounter; I10 Essential (primary) hypertension; F32.9 Major depressive disorder, single episode, unspecified; F41.9 Anxiety disorder, unspecified; M54.30 Sciatica, unspecified side; K21.9 Gastro-esophageal reflux disease without esophagitis; Z79.82 Long term (current) use of aspirin; Z79.899 Other long term (current) drug therapy; Z87.891 Personal history of nicotine dependence; Z90.721 Acquired absence of ovaries, unilateral; Z80.51 Family history of malignant neoplasm of kidney; Z80.1 Family history of malignant neoplasm of trachea, bronchus and lung
CPT/HCPCS: 80048; 81003; 85025; 87086; 88300

== ENCOUNTER → 2018-07-25 | Outpatient (CLI) | payer BC ==
--- NOTE | 2018-07-26 13:36 | MM ---
Reason for exam: screening (asymptomatic). Last mammogram was performed 1 year and 5 months ago. History: Patient is postmenopausal. Family history of breast cancer in aunt at age 58, breast cancer in maternal cousin, and breast cancer in paternal cousin at age 28. Took hormonal contraceptives for 8 years. Took estrogen for 2 years beginning at age 54. Took progesterone for 2 years beginning at age 54. Physical Findings: A clinical breast exam by your physician is recommended on an annual basis and results should be correlated with mammographic findings. MG 3D Screening Mammo W/Cad Bilateral CC and MLO view(s) were taken. Prior study comparison: February 18, 2017, bilateral MG screening mammo w CAD. February 18, 2016, bilateral MG screening mammo w CAD. The breast tissue is heterogeneously dense. This may lower the sensitivity of mammography. There are benign appearing round, oval, circumscribed, stable right lower outer quadrant masses at middle depth. There is a new left central outer mass for which ultrasound will be performed. This is located 5-6cm from nipple. No suspicious abnormality on the right breast. ASSESSMENT: Incomplete: need additional imaging evaluation, BI-RAD 0 RECOMMENDATION: Ultrasound of the left breast. (lower outer quadrant, upper outer quadrant) [facility] will attempt to contact patient to return for ultrasound.
== END | disposition home or self-care (01) ==
LOC: RADMAMWWP 14:17
PROVIDERS: ATTEND Obstetrics & Gynecology
DX: Z12.31 Encounter for screening mammogram for malignant neoplasm of breast (principal); Z78.0 Asymptomatic menopausal state; Z80.3 Family history of malignant neoplasm of breast
CPT/HCPCS: 77063; 77067

== ENCOUNTER → 2018-08-16 | Outpatient (CLI) | payer BC ==
--- NOTE | 2018-08-22 16:29 | USB ---
Reason for exam: additional evaluation requested from abnormal screening. History: Patient is postmenopausal. Family history of breast cancer in aunt at age 58, breast cancer in maternal cousin, and breast cancer in paternal cousin at age 28. Took hormonal contraceptives for 8 years. Took estrogen for 2 years beginning at age 54. Took progesterone for 2 years beginning at age 54. Indicated problem(s): lump or thickening in the left breast. Physical Findings: Nurse did not find any significant physical abnormalities on exam. US Breast Workup Limited LT Left limited breast ultrasound including focal area of concern, retroareolar and axilla demonstrates a .3 x .3 x .2 cm oval cystic lesion at 12 o'clock, a .3 x .4 x .3 cm oval cystic lesion at 12 o'clock that appear benign. And at 3 o'clock a .5 x .5 x .4 cm oval mixed with calcifications and no clear inclusive through transmission, so biopsy is recommended. These results were verbally communicated with the patient and result sheet given to the patient on 08/16/18. ASSESSMENT: Suspicious, BI-RAD 4 RECOMMENDATION: Ultrasound core biopsy of the left breast. Called Dr. Jay with mammographic findings and has scheduled an appointment for the patient for 08/23/18 at 11:[address] Britton for consultation only. PRELIMINARY REPORT CALLED AND FAXED TO DR. BRITTON ON 08/16/18
== END ==
LOC: RADUSWWP 07:09
PROVIDERS: ATTEND Obstetrics & Gynecology
DX: R92.8 Other abnormal and inconclusive findings on diagnostic imaging of breast (principal)

== ENCOUNTER → 2018-09-06 | Day surgery (SDC) | payer BC ==
[2018-09-06 13:56] VITALS: RESP 16; BMI 42.0
[2018-09-06 15:43] VITALS: BP 116/76; PULSE 66; TEMP 97.6
--- NOTE | 2018-09-06 17:58 | USB ---
EXAMINATION TYPE: US biopsy breast VAD LT, Post procedure MG diagnostic mammo LT wo CAD DATE OF EXAM: 09/06/2018 CLINICAL HISTORY: 63-year-old female R92.8 abnormal mammogram. TECHNIQUE: Ultrasound guided core biopsy of the left breast. COMPARISON: 07/25/2018 and 08/16/2018 FINDINGS: The procedure of ultrasound guided core biopsy was explained to the patient. Benefits, alternatives, and risks were discussed. An informed consent was then obtained. The patient was placed in supine positioning for imaging and for the procedure. The overlying skin was prepped and draped in usual sterile fashion. Lidocaine buffered with bicarbonate was used as anesthetic into the skin and subcutaneous tissue up to area of concern in the left breast. Left breast, 3:00 zone A: Under ultrasound guidance, a 13-gauge vacuum-assisted mammotome Elite biopsy gun was used to obtain 4 core samples. The lesion was sampled in its entirety and partially collapsed after the first pass. A cystic etiology is favored. Following this, a coil clip was left at the site of biopsy. The patient tolerated the procedure well without any immediate complication. The patient was kept in the radiology department for short stay after the procedure and then discharged home in stable condition. Postprocedure mammogram shows clip in appropriate position corresponding to the originally questioned mammographic focal asymmetry. IMPRESSION: Successful, uncomplicated ultrasound guided core biopsy of cystic area of concern in the 3:00 left breast corresponding to the mammographic focal asymmetry. A cystic etiology is favored. Full pathology results to follow. Pathology Results: Benign LEFT BREAST LESION, NEEDLE CORE BIOPSIES: Benign fibrofatty breast parenchyma with fibrocystic changes. Focal apocrine metaplasia is identified. Mineralizations are not seen. Recommendation Follow up ultrasound of the left breast in 6 months. TAMMIED
== END ==
LOC: RADUSWWP 13:32
PROVIDERS: ATTEND Surgery
DX: N60.12 Diffuse cystic mastopathy of left breast (principal); N60.82 Other benign mammary dysplasias of left breast; R92.8 Other abnormal and inconclusive findings on diagnostic imaging of breast; Z88.1 Allergy status to other antibiotic agents
CPT/HCPCS: 88305; 77065; 19083; A4648; J2001

== ENCOUNTER → 2018-09-06 | Outpatient (CLI) | payer BC ==
[2018-09-06 16:28] LABS: HGB 13.4 gm/dL (11.4-16.0); MCH 26.7 pg (25.0-35.0); MCHC 32.7 g/dL (31.0-37.0); MCV 81.7 fL (80.0-100.0); Mean Platelet Volume 7.8; Platelet Count 317 k/uL (150-450); RBC 5.02 m/uL (3.80-5.40); RDW 14.7 % (11.5-15.5); WBC 8.9 k/uL (3.8-10.6)
[2018-09-06 16:33] LABS: Appearance,Urine Clear (Clear); Bacteria,Urine Moderate /hpf; Bilirubin,Urine Negative (Negative); Blood,Urine Negative (Negative); Color,Urine Yellow; Glucose,Urine (UA) Negative (Negative); Ketones,Urine Negative (Negative); Leukocyte Esterase,Urine Small (Negative); Mucus,Urine Rare /hpf; Nitrite,Urine Negative (Negative); Protein,Urine Negative (Negative); RBC,Urine <1 /hpf (0-5); Specific Gravity,Urine 1.016 (1.001-1.035); Squamous Epithelial Cell,Urine 1 /hpf (0-4); Urobilinogen,Urine <2.0 mg/dL (<2.0); WBC,Urine 2 /hpf (0-5)
[2018-09-06 16:37] LABS: INR 0.9 (<1.2); Partial Thromboplastin Time 25.3 sec (22.0-30.0); Prothrombin Time 9.6 sec (9.0-12.0)
[2018-09-06 16:44] LABS: Anion Gap 9 mmol/L; Blood Urea Nitrogen 15 mg/dL (7-17); Carbon Dioxide 29 mmol/L (22-30); Chloride 102 mmol/L (98-107); Potassium 4.3 mmol/L (3.5-5.1); Sodium 140 mmol/L (137-145)
== END | disposition home or self-care (01) ==
LOC: LABPAT 15:50
PROVIDERS: ATTEND Orthopaedic Surgery Sports Medicine
DX: Z01.812 Encounter for preprocedural laboratory examination (principal)
CPT/HCPCS: 36415; 80051; 81001; 82565; 84520; 85027; 85610; 85730; 87070

== ENCOUNTER 2018-09-13 13:08 | Inpatient (IN) | payer BC ==
[2018-09-07 16:05] VITALS: BMI 42.0
[~2018-09-13 13:08] MED LIST changes: +ACETAMINOPHEN TAB 325 MG TAB PO PRN; +BISACODYL 10 MG SUPP RECTAL PRN; +DIAZEPAM 5 MG TAB PO PRN; +HYDROcodone/APAP 10-325MG 1 EACH TAB PO PRN; +HYDROcodone/APAP 5-325MG 1 EACH TAB PO PRN; +HYDROcodone/APAP 7.5-325MG 1 EACH TAB PO PRN; +HYDROmorphone 1 MG/ML 1 ML SYRINGE IVP PRN; +LACTATED RINGERS 1,000 ML IV SCH; +LIDOCAINE 1% 20 ML VIAL (10MG/ML) FOR IV START INTRADERMA PRN; +MAGNESIUM HYDROXIDE 2,400 MG/10 ML CUP PO PRN; +MELOXICAM 7.5 MG TAB PO ONE; +NA PHOS,M-B/NA PHOS,DI-BA 133 ML ENEMA RECTAL PRN; +NALOXONE 0.4 MG/ML 1 ML VIAL IV PRN; +ONDANSETRON 4 MG/2 ML VIAL IVP PRN; +ROPIVACAINE 246.25 MG, EPINEPHrine 0.5 MG, KETOROLAC 30 MG, cloNIDine HCL/PF 80 MCG, WA... MISCELLANE ONE; +SCOPOLAMINE 1.5MG/72HR PATCH TRANSDERM ONE; +TEMAZEPAM 15 MG CAP PO PRN; +traMADol 50 MG TAB PO PRN
[2018-09-13] MEDS: LACTATED RINGERS 1,000 ML IV SCH ×2 (13:57→21:33)
[2018-09-13] MEDS ORDERED: SODIUM CHLORIDE 0.9% 100 ML BAG ONE (14:54)
[2018-09-13] MEDS ORDERED: MIDAZOLAM 2 MG/2 ML VIAL ONE (14:54)
[2018-09-13] MEDS ORDERED: MORPHINE SULFATE (PF) 0.3 MG/0.3 ML SYR ONE (14:54)
[2018-09-13] MEDS ORDERED: PROPOFOL 10 MG/ML 20 ML VIAL IV ONE (14:54)
[2018-09-13] MEDS ORDERED: TRANEXAMIC ACID 1,000 MG/10 ML VIAL ONE (14:54)
[2018-09-13] MEDS ORDERED: MIDAZOLAM 2 MG/2 ML VIAL IV ONE (14:57)
[2018-09-13] MEDS ORDERED: ceFAZolin 3,000 MG in SODIUM CHLORIDE 0.9% IRRIGATIO 3,000 ML IRRIGATION ONE (15:29)
[2018-09-13] MEDS ORDERED: ONDANSETRON 4 MG/2 ML VIAL IVP ONE (17:04)
[2018-09-13] MEDS ORDERED: diphenhydrAMINE 50 MG/ML 1 ML VIAL IVP ONE (17:05)
--- NOTE | 2018-09-13 17:16 | XR ---
EXAMINATION TYPE: XR knee limited LT DATE OF EXAM: 09/13/2018 COMPARISON: NONE HISTORY: Postop knee surgery TECHNIQUE: 2 views FINDINGS: There is a left knee prosthesis. Components are in anatomic position. IMPRESSION: Prosthesis in good position. No complicating process seen.
[2018-09-13] MEDS ORDERED: NALOXONE 0.4 MG/ML 1 ML VIAL IV PRN (17:41)
[2018-09-13] MEDS ORDERED: HYDROmorphone 0.5 MG/0.5 ML SYRINGE IVP PRN (17:41)
[2018-09-13] MEDS: ASPIRIN 325 MG TAB PO SCH (20:01)
[2018-09-13] MEDS: SENNOSIDES-DOCUSATE SODIUM 1 EACH TAB PO SCH (20:01)
[2018-09-13] MEDS: diphenhydrAMINE 50 MG/ML 1 ML VIAL IVP PRN (20:02)
[2018-09-13] MEDS ORDERED: ONDANSETRON 4 MG/2 ML VIAL IVP STA (21:02)
[2018-09-13] MEDS ORDERED: diphenhydrAMINE 50 MG/ML 1 ML VIAL IVP STA (21:02)
[2018-09-14] MEDS: diphenhydrAMINE 50 MG/ML 1 ML VIAL IVP PRN ×2 (01:47→09:11)
--- NOTE | 2018-09-14 01:47 | OP ---
OPERATIVE REPORT DATE OF SERVICE: 09/13/2018. SURGEON: Ernesto Franklin M.D. TV HOST: Ac POZO . PREOPERATIVE DIAGNOSIS: Left knee osteoarthrosis. POSTOPERATIVE DIAGNOSIS: Left knee osteoarthrosis. OPERATION PERFORMED: Left total knee arthroplasty. ANESTHESIA: Spinal sedation. ESTIMATED BLOOD LOSS: 100 mL. TOURNIQUET TIME: 46 minutes at 250 mmHg. COMPLICATIONS: None apparent. DRAINS: None. DISPOSITION: Postanesthesia care unit. INDICATIONS: Katie is a very pleasant 63-year-old female with longstanding history of left knee pain. History and physical examination are consistent with advanced left knee osteoarthrosis. She has been through significant nonoperative management at this point. Further treatment options were discussed and she has decided to go forward with left total knee arthroplasty. The risks of the procedure were discussed with her in detail. These risks include, but are not limited to risk of infection, nerve damage, bleeding, pain, and a small risk of deep vein thrombosis which could lead to fatal pulmonary embolism. There is also risk of loosening of the implant which could require revision operation. The patient understands these risks. All of her questions were answered to her satisfaction. Appropriate informed consent was obtained. DESCRIPTION OF PROCEDURE: The patient was identified in the preoperative holding area. Surgical sites marked by both the patient and myself. She was given 2 g of Ancef IV for prophylactic purposes. She was then transferred to the operative suite. She was placed supine on the operative table. Spinal anesthetic was then administered and dosed per the anesthesia department without apparent complication. Examination under anesthesia was then performed. The patient was 2-3 degrees shy of full extension. She had 100 degrees of flexion. The medial collateral ligament, lateral collateral ligament and posterior cruciate ligaments were stable. Tourniquet was then placed high on the left upper thigh well-padded in preparation for surgery. The patient's left lower extremity was then prepped and draped in usual sterile fashion. Standard surgical pause undertaken to ensure that we were operating the correct site and that appropriate preoperative antibiotics were given. All staff in the room in agreement and we proceeded. The outlines of the patella were marked with a surgical pen. A planned 12 cm vertical incision centered over the patella was marked with surgical pen. Leg was then exsanguinated with an Esmarch dressing. The knee was then flexed and tourniquet inflated to 250 mmHg. The total tourniquet time for the procedure was 46 minutes. Incision was then made with a 10 blade scalpel. Dissection was carried down sharply overlying fascia. Great care was taken to minimize the skin flaps. The knee was then exposed using a standard medial parapatellar approach. A small cuff of quadriceps tendon was then left for suturing. She was in a bit of varus preoperatively. A standard medial release was then made. Superficial medial collateral ligament was dissected off the bone around the posterior aspect of the proximal tibia. The medial meniscus was then excised as well. The lateral meniscus was also released anteriorly. The leg was then externally rotated. The patella was everted. The knee was flexed. The retractors then placed to protect the collateral ligaments. I then proceeded to remove the infrapatellar fat pad. This was excised sharply tangentially with with the fibers of the patellar tendon. I then proceeded to remove the peripheral osteophytes. This was done with a rongeur. I then proceed with the distal femoral resection. She did have near full extension. A planned 9 mm resection was then done. The femoral canal was then entered in the midline of the femur approximately 10 mm anterior to the origin of the posterior cruciate ligament. The britney was then advanced down the center of the femur and placed intramedullary. Based on the preoperative radiographs, the angle between the anatomic and mechanical axis of the femur was approximately 4-5 degrees. The valgus angle of this femoral cutting guide was then set at 4 degrees for the left knee. The distal femoral cutting guide was then advanced over the intramedullary britney. This was seated firmly against the femur. I then, as mentioned, planned to take 9 mm off the distal femur. The cutting block was then secured onto the femur with pins. The jig was removed and the distal femoral cut was made through the slot of the blocks. The pin was then removed. The distal femoral cutting block was removed. The accuracy of the distal femoral cuts was checked with 2 flat bars. I then proceed to femoral sizing. Posterior referencing sizing guide was held firmly against the resected distal surface of the femur. The posterior condyles were resting on the posterior plane of the guide. The sizing stylus was then placed onto the anterior femur. The size measured a size 6. I then assessed for femoral rotation. Plan was for 3 degrees of external rotation. Three degrees of external rotation was placed onto the jig. These holes were then marked. I then confirmed the rotation by 3 separate methods. This was done using the epicondylar axis as well as Whitesides line and posterior referencing. It was deemed that the external rotation was proper. I then went forward placing the femoral cutting block. This was placed over the previously placed pin holes. The Beny wing was then placed on the anterior slots to ensure that we would not notch the anterior femur with the anterior femoral cut. I then proceed with the anterior femoral cut. This was flush with the anterior cortex of the femur. The posterior cuts were then made followed by the anterior chamfer cut, then the posterior chamfer cut. The cutting block was then removed. Throughout the resection, the collateral ligaments were protected with retractors. I then placed a trial size 6 femur. There was slightly wide mediolateral but the narrow fit very nicely and it fit flush with the distal end of the femur. The drill holes were then made. I then proceeded with the tibial cut. I planned for cruciate retaining knee. The guide was placed and set for varus valgus and for slope. The height was set for approximate 2 mm resection from the medial tibial plateau which was the lower side. I was happy with my alignment and the amount of resection. The cutting block was then pinned to the proximal tibia. The alignment britney was removed. The proximal tibia was resected with a reciprocating saw. Again this was done with retractors protecting the collateral ligaments as well as the posterior cruciate ligament. I then proceeded to evaluate the flexion and extension gaps. A 10 mm block was placed. The flexion-extension gaps were equal. I then proceeded with resection of posterior osteophytes. She had very minimal posterior osteophytes. This was done using a curved osteotome. This resected the posterior osteophytes and posterior capsule stripping was done off the posterior aspect of the femur at this time. The osteophytes were then removed. I then proceeded with resection of patella. The thickness of patella was measured using the caliper. The thickness was 22 mm. The thickness of the anticipated patellar dome was taken into account. Resection was then performed and confirmed to be equal in 4 quadrants using a caliper. Approximately 14 mm of bone remained after resection. A 29 x 8 mm standard patellar trial was then placed. The drill holes were then drilled. The trial was then placed. I then proceeded with sizing the tibial plate. A size C tibial plate fit very nicely. I then placed the trial femur the tibial tray and patellar button. A 10 mm trial tibial insert was also placed. The components fit very nicely. She had full extension and flexion. The extension and flexion gaps were equal and stable to both varus and valgus stress. The patella tracked appropriately. Tibial tray rotation was marked with a Bovie. This was externally rotated properly. I then proceed with tibial preparation. First drilled the femoral holes and removed the femoral component. The tibial tray was then set for proper external rotation as well as mediolateral placement onto the tibia. It was then pinned into place. I then proceeded with punching the keel. I then decided to proceed with cementing all of our components. The knee was thoroughly irrigated with sterile saline solution via pulse lavage. The lateral geniculate artery was identified and cauterized. All blood was removed from the bone of the tibia femur and patella with pulse lavage. I then proceed with cementing. Two packs of antibiotic bone cement were prepared on the back table by the surgical garment fitter. I then proceed with cementing the tibia first. The cement was impacted into the keel as well as deeply seated in the bone. A second coat of cement was then placed. The tibia was then impacted into place. Excess cement was removed with [place]'s and Joker's. I then proceeded with cementing of the femoral component. The femoral component was also cemented using standard technique. Excess cement was removed. A 10 mm trial insert was then placed into the knee. It was brought into full extension with a constant axial load placed until the cement had hardened. The trial component was then cemented. This was held firmly with a compressive device until cement had dried. When the cement had dried, the knee was taken out of extension. All excess cement was removed from around the prosthesis. I then trialed the knee with a 10 mm insert. Flexion extension gaps were appropriate. I then trialed with a 12 mm insert. The flexion-extension gaps felt much better. The knee was stable with a 12 mm insert. It came into full extension. I decided to go forward with a 12 mm cross-linked cruciate- retaining tibial insert. Polyethylene was then placed onto the tibial tray and locked into place. The knee was then reduced. The knee was again further irrigated with sterile saline solution with antibiotic added. The tourniquet was then deflated. Total tourniquet time for the procedure was 46 minutes at 250 mmHg. Final components were Erickson Persona size 6 narrow cruciate-retaining femoral component, a size C tibial tray, a 12 mm medial congruent cruciate-retaining polyethylene insert and a 29 x 8 mm patella. I then proceeded with closure. Again, the knee was thoroughly irrigated. The quadriceps tendon and the medial retinaculum were reapproximated with #2 Ethibond suture. The extensor mechanism was then closed with a running #2 Quill suture. Subcutaneous tissues were then closed with 2-0 Vicryl interrupted suture. The skin was closed with a running 3-0 Quill suture. Dermabond was applied to the incision. Sterile compressive dressing was then applied. All sponge and needle counts were deemed correct prior to closure. The patient tolerated the procedure without apparent complication. She was transferred to recovery room in stable condition. MMODL / IJN: [id number] /
[2018-09-14] MEDS: ceFAZolin IN SWFI 2 GM/20 ML SYRINGE IVP SCH ×2 (07:10)
[2018-09-14] MEDS: MULTIVITAMINS, THERA 1 EACH TAB PO SCH (07:10)
[2018-09-14] MEDS: ASPIRIN 325 MG TAB PO SCH ×2 (07:10→20:44)
--- NOTE | 2018-09-14 07:47 | P.PN ---
Progress Note - Text Progress Note Date: 09/14/18 Post-spinal with Duramorph note Status post left knee replacement Patient denies any headaches or any other complaints Spinal site looks clean dry and intact Patient tolerating by mouth primary team managing pain Anesthesia sign off
--- NOTE | 2018-09-14 09:13 | P.PN ---
Subjective Progress Note Date: 09/14/18 Principal diagnosis: Left TKA Patient is seen at bedside this morning. He is postop day #1 from left total knee arthroplasty.. He has pain at the surgical site as expected but denies any new complaints. He denies numbness, tingling or calf pain. Review of systems is negative for fever, chills, chest pain, shortness of breath or other Objective - Vital Signs Vital signs: Vital Signs Temp 98.5 F 09/14/18 07:17 Pulse 80 09/14/18 07:17 Resp 16 09/14/18 07:17 BP 103/57 09/14/18 07:17 Pulse Ox 96 09/14/18 07:17 Intake & Output 09/13/18 09/14/18 09/14/18 18:59 06:59 18:59 Intake Total 801 Output Total 100 Balance 701 Intake: IV 801 Output: Estimated Blood Loss 100 Other: # Voids 1 - Exam Inspection reveals a benign surgical wound. There is no active bleeding or drainage. Neurovascular status is intact throughout the lower extremity with motor and sensation fully intact. Calf is soft and nontender. 2+ dorsalis pedis pulse and less than 2 second cap refill is present. - Constitutional General appearance: Present: no acute distress Assessment and Plan (1) Osteoarthritis of left knee Narrative/Plan: She will continue with routine postop orthopedic protocol including pain management, wound care, PT, DVT prophylaxis and medical management. Expect that he will transfer to home tomorrow Current Visit: Yes Status: Acute Priority: Medium Code(s): M17.12 - UNILATERAL PRIMARY OSTEOARTHRITIS, LEFT KNEE SNOMED Code(s): 442177085857205 Time with Patient: Less than 30
[2018-09-14] MEDS: HYDROcodone/APAP 5-325MG 1 EACH TAB PO PRN ×3 (09:58→20:05)
[2018-09-14 10:00] LABS: HCT 35.6 % (34.0-46.0); HGB 11.7 gm/dL (11.4-16.0); MCHC 32.9 g/dL (31.0-37.0); Mean Platelet Volume 7.6; Platelet Count 298 k/uL (150-450); RBC 4.34 m/uL (3.80-5.40); RDW 14.8 % (11.5-15.5); WBC 12.4 k/uL (3.8-10.6)
[2018-09-14] MEDS: LACTATED RINGERS 1,000 ML IV SCH ×2 (10:28→19:24)
[2018-09-14 11:08] LABS: Band Neutrophils % 2 %; Lymphocytes # (M) 1.12 k/uL (1.0-4.8); Monocytes # (M) 0.12 k/uL (0-1.0); Neutrophils % (M) 88 %; Nucleated Red Blood Cells 0 /100 WBC (0-0); Total Cells Counted 100; Toxic Granulation Present
[2018-09-14] MEDS: hydrOXYzine PAMOATE 25 MG CAP PO PRN ×2 (15:05→20:04)
--- NOTE | 2018-09-14 17:41 | P.CONS ---
History of Present Illness - Reason for Consult Recommendations regarding antidepressive medications - History of Present Illness Patient is a pleasant 63-year-old female a successful underwent the left knee arthroplasty patient doesn't have any drainage and place. Patient denied any fever chills nausea vomiting denied any abdominal pain patient had an epidural in they location of epidural patient has some itching although there is no obvious rash patient received the Benadryl and patient is also on hydroxyzine. I recommended to apply some lotion in that area patient the blood pressure is low normal because of which I'll hold off on hydrochlorothiazide this low normal blood pressure is expected post surgery. Patient is on lactated Ringer' s. Review of Systems REVIEW OF SYSTEMS: CONSTITUTIONAL: No fever, no malaise, no fatigue. HEENT: No recent visual problems or hearing problems. Denied any sore throat. CARDIOVASCULAR: No chest pain, orthopnea, PND, no palpitations, no syncope. PULMONARY: No shortness of breath, no cough, no hemoptysis. GASTROINTESTINAL: No diarrhea, no nausea, no vomiting, no abdominal pain. NEUROLOGICAL: No headaches, no weakness, no numbness. HEMATOLOGICAL: Denies any bleeding or petechiae. GENITOURINARY: Denies any burning micturition, frequency, or urgency. MUSCULOSKELETAL/RHEUMATOLOGICAL: Denies any joint pain, swelling, or any muscle pain. ENDOCRINE: Denies any polyuria or polydipsia. The rest of the 14-point review of systems is negative. Past Medical History Past Medical History: GERD/Reflux, Hypertension, Musculoskeletal Disorder, Osteoarthritis (OA) Additional Past Medical History / Comment(s): OCC Sciatica. "ON RX FOR PREVENTION/BORDERLINE HTN." TINNITUS RT EAR. History of Any Multi-Drug Resistant Organisms: None Reported Past Surgical History: Orthopedic Surgery Additional Past Surgical History / Comment(s): Rt ovary removed, rt knee arthroscopy, rt rot cuff; TOTAL RT KNEE. LT BREAST BIOPSY 09/06/18. Past Anesthesia/Blood Transfusion Reactions: No Reported Reaction Additional Past Anesthesia/Blood Transfusion Reaction / Comm: no hx blood transfusion Past Psychological History: Anxiety Smoking Status: Former smoker Past Alcohol Use History: Occasional Additional Past Alcohol Use History / Comment(s): Smoked while in college <1ppd Past Drug Use History: None Reported - Past Family History Mother Family Medical History: Cancer Additional Family Medical History / Comment(s): kidney Father Family Medical History: Cancer, Deep Vein Thrombosis (DVT) Additional Family Medical History / Comment(s): lung Medications and Allergies Home Medications Medication Instructions Recorded Confirmed Type Hydrochlorothiazide 12.5 mg PO DAILY 08/03/17 09/13/18 History Ibuprofen 800 mg PO BID PRN 08/03/17 09/13/18 History Omeprazole 20 mg PO HS 08/03/17 09/13/18 History Calcium Carbonate/Vitamin D3 1 tab PO BID 02/06/18 09/13/18 History [Calcium 600-Vit D3 200 Tablet] Multivit-Min/Iron/Folic/Lutein 1 tab PO DAILY 02/06/18 09/13/18 History [Centrum Silver Women Tablet] Acetaminophen [Tylenol Arthritis] 650 mg PO Q6H PRN 09/07/18 09/13/18 History Turmeric Root Extract [Turmeric] 500 mg PO DAILY 09/07/18 09/13/18 History Allergies Allergy/AdvReac Type Severity Reaction Status Date / Time erythromycin base Allergy Rash/Hives Verified 09/13/18 18:44 Physical Exam Vitals: Vital Signs Temp Pulse Pulse Pulse Resp BP Pulse Ox 09/14/18 15:00 98.9 F 86 12 129/79 97 09/14/18 07:17 98.5 F 80 16 103/57 96 09/14/18 05:19 18 09/14/18 03:50 18 98 09/14/18 02:00 18 09/14/18 00:50 18 09/14/18 00:00 98 09/13/18 23:00 97.9 F 90 20 166/96 98 09/13/18 22:00 18 09/13/18 20:45 77 122/77 93 L 09/13/18 20:41 18 09/13/18 20:30 68 110/76 97 09/13/18 20:27 92 L 09/13/18 20:15 75 115/64 96 09/13/18 20:00 70 121/80 95 09/13/18 19:45 82 115/55 92 L 09/13/18 19:30 76 131/72 09/13/18 19:15 78 105/63 96 09/13/18 19:00 73 129/71 95 09/13/18 18:45 98.0 F 71 123/76 98 09/13/18 18:41 18 09/13/18 17:45 70 18 132/63 92 L Intake and Output 09/14/18 09/14/18 09/14/18 06:59 14:59 22:59 Intake Total 300 Balance 300 Intake: Other 300 Other: # Voids 1 3 PHYSICAL EXAMINATION: GENERAL: The patient is alert and oriented x3, not in any acute distress. Well developed, well nourished. HEENT: Pupils are round and equally reacting to light. EOMI. No scleral icterus. No conjunctival pallor. Normocephalic, atraumatic. No pharyngeal erythema. No thyromegaly. CARDIOVASCULAR: S1 and S2 present. No murmurs, rubs, or gallops. PULMONARY: Chest is clear to auscultation, no wheezing or crackles. ABDOMEN: Soft, nontender, nondistended, normoactive bowel sounds. No palpable organomegaly. MUSCULOSKELETAL deferred to orthopedic surgery EXTREMITIES: No cyanosis, clubbing, or pedal edema. NEUROLOGICAL: Gross neurological examination did not reveal any focal deficits. SKIN: No rashes. Results CBC & Chem 7: 09/14/18 09:12 Labs: Abnormal Lab Results - Last 24 Hours (Table) 09/14/18 Range/Units 09:12 WBC 12.4 H (3.8-10.6) k/uL Neutrophils # (Manual) 11.10 H (1.3-7.7) k/uL Assessment and Plan Plan: -Hypertension: Hold off anti-hypertensive medications because of concerns of perioperative hypotension which is expected patient is receiving IV fluids which she is appropriate at this time. -Gastroesophageal reflux disease next patient is on portable minimal odor this time -Left knee arthroplasty pain management and DVT prophylaxis per primary service
[2018-09-14] MEDS ORDERED: diphenhydrAMINE 50 MG CAP PO PRN (18:45)
[2018-09-14] MEDS: PANTOPRAZOLE 40 MG TABLET PO SCH (20:44)
[2018-09-14] MEDS: SENNOSIDES-DOCUSATE SODIUM 1 EACH TAB PO SCH (20:46)
[2018-09-15] MEDS: hydrOXYzine PAMOATE 25 MG CAP PO PRN ×2 (01:38→06:50)
[2018-09-15] MEDS: HYDROcodone/APAP 5-325MG 1 EACH TAB PO PRN ×3 (01:39→14:02)
[2018-09-15] MEDS: LACTATED RINGERS 1,000 ML IV SCH ×3 (02:59→20:41)
--- NOTE | 2018-09-15 08:56 | P.DS ---
Providers Date of admission: 09/13/18 13:08 Expected date of discharge: 09/15/18 Attending physician: Ernesto Franklin Consults: 09/13/18 11:35 Consult Physician Routine Consulting Provider: Nestor Allen Consult Reason/Comments: post op medical management Do you want consulting provider notified?: Yes Primary care physician: Lanette Luna - Discharge Diagnosis(es) (1) Osteoarthritis of left knee Patient was admitted to the OR on 09/13/2018 to undergo a left total knee arthroplasty. She had failed conservative measures as an outpatient and desired to proceed with elective surgery after given informed consent. She underwent the above procedure which she tolerated well without complication. Postoperative hospital course has remained without complication. On day of discharge she is afebrile, vital signs stable, labs within acceptable ranges, tolerating by mouth meds and diet, voiding without difficulty, positive flatus, denies abdominal pain or calf pain, pain is controlled on oral pain medication and has no new complaints. Wound is benign, neurovascular status is intact, calf is soft and nontender, abdomen soft and nontender. Review of systems is negative for numbness, tingling, fever, chills, chest pain, shortness breath, nausea, vomiting, dizziness, headaches, slurred speech or other Current Visit: Yes Status: Acute Priority: Medium Patient Condition at Discharge: Good Plan - Discharge Summary Discharge Rx Participant: Yes New Discharge Prescriptions: New Aspirin 325 mg PO BID #60 tab Docusate [Colace] 100 mg PO BID #60 capsule HYDROcodone/APAP 10-325MG [Capay 10-325] 1 tab PO Q4HR PRN #42 tab PRN Reason: Pain No Action Omeprazole 20 mg PO HS Ibuprofen 800 mg PO BID PRN PRN Reason: Pain Hydrochlorothiazide 12.5 mg PO DAILY Multivit-Min/Iron/Folic/Lutein [Centrum Silver Women Tablet] 1 tab PO DAILY Calcium Carbonate/Vitamin D3 [Calcium 600-Vit D3 200 Tablet] 1 tab PO BID Turmeric Root Extract [Turmeric] 500 mg PO DAILY Acetaminophen [Tylenol Arthritis] 650 mg PO Q6H PRN PRN Reason: Pain Discharge Medication List Hydrochlorothiazide 12.5 mg PO DAILY 08/03/17 [History] Ibuprofen 800 mg PO BID PRN 08/03/17 [History] Omeprazole 20 mg PO HS 08/03/17 [History] Calcium Carbonate/Vitamin D3 [Calcium 600-Vit D3 200 Tablet] 1 tab PO BID [History] Multivit-Min/Iron/Folic/Lutein [Centrum Silver Women Tablet] 1 tab PO DAILY 09/25 [History] Acetaminophen [Tylenol Arthritis] 650 mg PO Q6H PRN 09/07/18 [History] Turmeric Root Extract [Turmeric] 500 mg PO DAILY 09/07/18 [History] Aspirin 325 mg PO BID #60 tab 09/15/18 [Rx] Docusate [Colace] 100 mg PO BID #60 capsule 09/15/18 [Rx] HYDROcodone/APAP 10-325MG [Capay 10-325] 1 tab PO Q4HR PRN #42 tab 09/15/18 [Rx] Follow up Appointment(s)/Referral(s): [facility], [NON-STAFF] - Ernesto Franklin MD [STAFF PHYSICIAN] - 1 Week Activity/Diet/Wound Care/Special Instructions: Keep wound clean and dry Take meds as directed Follow-up with Dr. Franklin in office Weight bear as tolerated May shower in 3 days if no bleeding Discharge Disposition: HOME WITH HOME HEALTH SERVICES
[2018-09-15] MEDS: ASPIRIN 325 MG TAB PO SCH ×2 (09:27→20:43)
[2018-09-15] MEDS: MULTIVITAMINS, THERA 1 EACH TAB PO SCH (09:27)
[2018-09-15] MEDS: oxyCODONE ER 10 MG TAB.ER.12H PO SCH ×2 (09:28→23:05)
[2018-09-15] MEDS ORDERED: HYDROcodone/APAP 10-325MG 1 EACH TAB PO PRN (18:04)
[2018-09-15] MEDS: HYDROcodone/APAP 10-325MG 1 EACH TAB PO PRN (19:16)
[2018-09-15] MEDS: SENNOSIDES-DOCUSATE SODIUM 1 EACH TAB PO SCH (20:43)
[2018-09-15] MEDS: PANTOPRAZOLE 40 MG TABLET PO SCH (20:43)
[2018-09-16] MEDS: HYDROcodone/APAP 10-325MG 1 EACH TAB PO PRN ×2 (02:58→11:26)
[2018-09-16] MEDS: oxyCODONE ER 10 MG TAB.ER.12H PO SCH (07:55)
[2018-09-16] MEDS: ASPIRIN 325 MG TAB PO SCH (07:55)
[2018-09-16] MEDS: MULTIVITAMINS, THERA 1 EACH TAB PO SCH (07:55)
[2018-09-16 08:02] VITALS: BP 160/94; PULSE 89; RESP 16; TEMP 98.5
[2018-09-16 09:14] LABS: Basophils # (A) 0.1 k/uL (0-0.2); Basophils % (A) 1 %; Eosinophils # (A) 0.2 k/uL (0-0.7); Eosinophils % (A) 3 %; HCT 36.4 % (34.0-46.0); HGB 12.2 gm/dL (11.4-16.0); Lymphocytes # (A) 1.2 k/uL (1.0-4.8); Lymphocytes % (A) 18 %; MCH 27.5 pg (25.0-35.0); MCHC 33.5 g/dL (31.0-37.0); MCV 81.9 fL (80.0-100.0); Mean Platelet Volume 6.9; Monocytes # (A) 0.3 k/uL (0-1.0); Monocytes % (A) 5 %; Neutrophils # (A) 4.9 k/uL (1.3-7.7); Neutrophils % (A) 73 %; Platelet Count 257 k/uL (150-450); RBC 4.44 m/uL (3.80-5.40); RDW 14.7 % (11.5-15.5); WBC 6.8 k/uL (3.8-10.6)
[2018-09-16] MEDS: LACTATED RINGERS 1,000 ML IV SCH (10:32)
--- NOTE | 2018-09-16 11:45 | P.PN ---
Subjective Progress Note Date: 09/16/18 Principal diagnosis: Degenerative arthritis left knee. Status post total left knee arthroplasty. This is a 63-year-old female who is status post total left knee arthroplasty on 09/13/2018. Her discharge was held yesterday for pain management. She is doing much better today. Patient is discharged to home today. Please see previous discharge summary and discharge orders. Objective - Vital Signs Vital signs: Vital Signs Temp 98.5 F 09/16/18 08:01 Pulse 89 09/16/18 08:01 Resp 16 09/16/18 08:01 BP 160/94 09/16/18 08:01 Pulse Ox 96 09/16/18 08:01 Intake & Output 09/15/18 09/16/18 09/16/18 18:59 06:59 18:59 Intake Total 500 240 Balance 500 240 Intake: Oral 500 240 Other: # Voids 2 - Labs CBC & Chem 7: 09/16/18 07:43
[2018-09-16] MEDS ORDERED: HYDROCHLOROTHIAZIDE 12.5 MG CAP PO SCH (12:00)
--- NOTE | 2018-09-16 13:00 | P.PN ---
Subjective Patient is clinically doing well blood pressure is bit elevated leukocytosis resolved patient will be resumed on hydrochlorothiazide no further intervention at testing is S3 patient is stable to discharge from medicine perspective patient was asked to take [id number] medications like senna if she is constipated because of opiates. Constitutional: Denied any fatigue denied any fever. Cardio vascular: denied any chest pain, palpitations Gastrointestinal denied any nausea vomiting Pulmonary: Denied any shortness of breath cough Neurologic denied any new focal deficits All inpatient medications were reviewed and appropriate changes in these medications as dictated in the interval history and assessment and plan. Objective - Vital Signs Vital signs: Vital Signs Temp 98.5 F 09/16/18 08:01 Pulse 89 09/16/18 08:01 Resp 16 09/16/18 08:01 BP 160/94 09/16/18 08:01 Pulse Ox 96 09/16/18 08:01 Intake & Output 09/15/18 09/16/18 09/16/18 18:59 06:59 18:59 Intake Total 500 240 Balance 500 240 Intake: Oral 500 240 Other: # Voids 2 - Exam PHYSICAL EXAMINATION: GENERAL: The patient is alert and oriented x3, not in any acute distress. Well developed, well nourished. HEENT: Pupils are round and equally reacting to light. EOMI. No scleral icterus. No conjunctival pallor. Normocephalic, atraumatic. No pharyngeal erythema. No thyromegaly. CARDIOVASCULAR: S1 and S2 present. No murmurs, rubs, or gallops. PULMONARY: Chest is clear to auscultation, no wheezing or crackles. ABDOMEN: Soft, nontender, nondistended, normoactive bowel sounds. No palpable organomegaly. MUSCULOSKELETAL: Deferred to orthopedic surgery EXTREMITIES: No cyanosis, clubbing, or pedal edema. NEUROLOGICAL: Gross neurological examination did not reveal any focal deficits. SKIN: No rashes. - Labs CBC & Chem 7: 09/16/18 07:43 Assessment and Plan Plan: -Hypertension: Patient can be resumed on hydrochlorothiazide -Gastroesophageal reflux disease -Left knee arthroplasty pain management and DVT prophylaxis per primary service
== END 2018-09-16 13:46 | disposition home health service (06) | DRG 470 ==
LOC: 2ORMAIN 13:08 → 4SSUR 17:20
PROVIDERS: ADMIT Orthopaedic Surgery Sports Medicine; ATTEND Orthopaedic Surgery Sports Medicine
PROC: 0SRD0J9 Replacement of Left Knee Joint with Synthetic Substitute, Cemented, Open Approach (ICD-10-PCS; principal; 2018-09-13 14:55)
DX: M17.12 Unilateral primary osteoarthritis, left knee (principal); Z68.41 Body mass index [BMI] 40.0-44.9, adult; R63.5 Abnormal weight gain; K21.9 Gastro-esophageal reflux disease without esophagitis; I10 Essential (primary) hypertension; H93.11 Tinnitus, right ear; F41.9 Anxiety disorder, unspecified; Z79.899 Other long term (current) drug therapy; Z87.891 Personal history of nicotine dependence; Z96.651 Presence of right artificial knee joint; Z90.721 Acquired absence of ovaries, unilateral; Z88.1 Allergy status to other antibiotic agents; Z80.9 Family history of malignant neoplasm, unspecified; Z82.49 Family history of ischemic heart disease and other diseases of the circulatory system
CPT/HCPCS: 85025; 88300; 94760

== ENCOUNTER → 2018-10-09 | Outpatient (CLI) | payer BC ==
--- NOTE | 2018-10-09 16:46 | US ---
EXAMINATION TYPE: US venous doppler duplex LE LT DATE OF EXAM: 10/09/2018 3:07 PM COMPARISON: NONE CLINICAL HISTORY: I80.9 Phlebitis and thrombophlebitis left leg. Left posterior and lateral calf pain x 4 weeks since left total knee replacement SIDE PERFORMED: Left TECHNIQUE: The lower extremity deep venous system is examined utilizing real time linear array sonog claude with graded compression, doppler sonography and color-flow sonography. VESSELS IMAGED: Common Femoral Vein Deep Femoral Vein Greater Saphenous Vein * Femoral Vein Popliteal Vein Small Saphenous Vein * Proximal Calf Veins (* superficial vessels) Left Leg: Negative for DVT; is positive for complex popliteal fossa cyst (size = 6.3 x 5.0 x 1.4cm) and is noted area of pain. Tech findings called to GUADALUPE Jon, at exam's end. Grayscale, color doppler, spectral doppler imaging performed of the deep veins of the left lower ex tremity. There is normal flow, compressibility, vascular waveforms. IMPRESSION: No ultrasound evidence for acute DVT in the left lower extremity. Moderate-sized poplitea l cyst noted towards end of study.
== END | disposition home or self-care (01) ==
LOC: RADUSWWP 15:04
PROVIDERS: ATTEND Orthopaedic Surgery
DX: M71.22 Synovial cyst of popliteal space [Baker], left knee (principal); M17.12 Unilateral primary osteoarthritis, left knee; I80.9 Phlebitis and thrombophlebitis of unspecified site; Z96.652 Presence of left artificial knee joint

== ENCOUNTER → 2019-09-17 | Outpatient (CLI) | payer BC ==
--- NOTE | 2019-09-17 10:57 | MM ---
Reason for exam: additional evaluation requested from prior study. Last mammogram was performed 1 year ago. History: Patient is postmenopausal. Family history of breast cancer in aunt at age 58, breast cancer in maternal cousin, and breast cancer in paternal cousin at age 28. Benign US biopsy breast VAD LT of the left breast, September 06, 2018. Took hormonal contraceptives for 8 years. Took estrogen for 2 years beginning at age 54. Taking progesterone for 2 years beginning at age 54. 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 MG Diagnostic Mammo w CAD NAOMI Bilateral CC and MLO view(s) were taken. Prior study comparison: September 06, 2018, left breast MG diagnostic mammo LT wo CAD. July 25, 2018, bilateral MG 3d screening mammo w/cad. There are scattered fibroglandular densities. Left biopsy marker noted. These results were verbally communicated with the patient and result sheet given to the patient on 09/17/19. ASSESSMENT: Negative, BI-RAD 1 RECOMMENDATION: Routine screening mammogram of both breasts in 1 year.
== END | disposition home or self-care (01) ==
LOC: RADMAMWWP 09:43
PROVIDERS: ATTEND Obstetrics & Gynecology
DX: N63.10 Unspecified lump in the right breast, unspecified quadrant (principal); N63.20 Unspecified lump in the left breast, unspecified quadrant
CPT/HCPCS: 77066

== ENCOUNTER → 2020-11-28 | Outpatient (CLI) | payer BC ==
--- NOTE | 2020-12-01 11:19 | MM ---
Reason for exam: screening (asymptomatic). Last mammogram was performed 1 year and 2 months ago. History: Patient is postmenopausal. Family history of breast cancer in aunt at age 58, breast cancer in maternal cousin, and breast cancer in paternal cousin at age 28. Benign US biopsy breast VAD LT of the left breast, September 06, 2018. Took hormonal contraceptives for 8 years. Took estrogen for 2 years beginning at age 54. Taking progesterone for 2 years beginning at age 54. Took other hormone beginning at age 64. Physical Findings: A clinical breast exam by your physician is recommended on an annual basis and results should be correlated with mammographic findings. MG 3D Screening Mammo W/Cad Bilateral CC and MLO view(s) were taken. Prior study comparison: September 17, 2019, bilateral MG diagnostic mammo w CAD NAOMI. September 06, 2018, left breast MG diagnostic mammo LT wo CAD. There are scattered fibroglandular densities. No significant changes when compared with prior studies. ASSESSMENT: Negative, BI-RAD 1 RECOMMENDATION: Routine screening mammogram of both breasts in 1 year.
== END | disposition home or self-care (01) ==
LOC: RADMAMWWP 11:07
PROVIDERS: ATTEND Obstetrics & Gynecology
DX: Z12.31 Encounter for screening mammogram for malignant neoplasm of breast (principal); Z80.3 Family history of malignant neoplasm of breast; Z78.0 Asymptomatic menopausal state
CPT/HCPCS: 77063; 77067

== ENCOUNTER → 2021-12-16 | Outpatient (CLI) | payer BC ==
--- NOTE | 2021-12-18 12:07 | MM ---
Reason for exam: screening (asymptomatic). Last mammogram was performed 1 year and 1 month ago. History: Patient is postmenopausal. Family history of breast cancer in aunt at age 58, breast cancer in maternal cousin, and breast cancer in paternal cousin at age 28. Benign US biopsy breast VAD LT of the left breast, September 06, 2018. Took hormonal contraceptives for 8 years. Took estrogen for 2 years beginning at age 54. Taking progesterone for 2 years beginning at age 54. Took other hormone beginning at age 64. Physical Findings: A clinical breast exam by your physician is recommended on an annual basis and results should be correlated with mammographic findings. MG Screening Mammo w CAD Bilateral CC and MLO view(s) were taken. Prior study comparison: November 28, 2020, bilateral MG 3d screening mammo w/cad. September 17, 2019, bilateral MG diagnostic mammo w CAD NAOMI. There are scattered fibroglandular densities. Previous mammotome biopsy in the left breast. No significant changes when compared with prior studies. ASSESSMENT: Negative, BI-RAD 1 RECOMMENDATION: Routine screening mammogram of both breasts in 1 year.
== END | disposition home or self-care (01) ==
LOC: RADMAMWWP 16:22
PROVIDERS: ATTEND Obstetrics & Gynecology
DX: Z12.31 Encounter for screening mammogram for malignant neoplasm of breast (principal); Z78.0 Asymptomatic menopausal state; Z80.3 Family history of malignant neoplasm of breast
CPT/HCPCS: 77067

== ENCOUNTER → 2022-02-17 | Outpatient (CLI) | payer MEDICARE ==
[2022-02-17 13:18] LABS: ALT 23 U/L (4-34); AST 23 U/L (14-36); African American GFR (CKD) >90 (>60 ml/min/1.73 sqM); Anion Gap 6 mmol/L; Blood Urea Nitrogen 18 mg/dL (7-17); C Reactive Protein 1.3 mg/dL (<1.0); Calcium 9.5 mg/dL (8.4-10.2); Carbon Dioxide 29 mmol/L (22-30); Chloride 102 mmol/L (98-107); Creatine Kinase 47 U/L (30-135); Glucose 84 mg/dL (74-99); Non-African American GFR(CKD) 88 (>60 ml/min/1.73 sqM); Potassium 4.1 mmol/L (3.5-5.1); Sodium 137 mmol/L (137-145); Uric Acid 6.1 mg/dL (3.7-7.4)
[2022-02-17 18:28] LABS: Basophils # (A) 0.04 X 10*3/uL (0.00-0.10); Basophils % (A) 0.6 %; Eosinophils # (A) 0.08 X 10*3/uL (0.04-0.35); Eosinophils % (A) 1.1 %; HCT 41.3 % (37.2-46.3); HGB 13.6 g/dL (12.0-15.0); Immature Grans, Automated 0.9 %; Lymphocytes % (A) 15.8 %; MCHC 32.9 g/dL (32.0-37.0); Mean Platelet Volume 12.1 fL (9.5-12.2); Monocytes # (A) 0.34 X 10*3/uL (0.20-1.00); Monocytes % (A) 4.9 %; NRBC Per 100 WBC 0 /100 WBCS (0.0-0.0); Neutrophils # (A) 5.35 X 10*3/uL (1.80-7.70); Neutrophils % (A) 76.7 %; Platelet Count 274 X 10*3/uL (140-440); RBC 4.86 X 10*6/uL (4.10-5.20); RDW 14.1 % (11.5-14.5); WBC 6.97 X 10*3/uL (4.50-10.00)
[2022-02-17 19:25] LABS: Erythrocyte Sedimentation Rate 12 mm/Hr (0-30)
[2022-02-17 21:45] LABS: Cyclic Citrull Pep IgG Unit <0.5 U/mL; Cyclic Citrullinated Pep IgG NEGATIVE (NEGATIVE)
[2022-02-18 02:42] LABS: Rheumatoid Factor, Qnt <10 IU/mL (0-15)
[2022-02-18 10:06] LABS: HLA B27 NEGATIVE
== END | disposition home or self-care (01) ==
LOC: LABWHC1 11:08
PROVIDERS: ATTEND Orthopaedic Surgery
DX: G56.03 Carpal tunnel syndrome, bilateral upper limbs (principal); M25.531 Pain in right wrist; M25.532 Pain in left wrist; R20.2 Paresthesia of skin
CPT/HCPCS: 36415; 80048; 82009; 82306; 82550; 83520; 84439; 84443; 84450; 84460; 84550; 85025; 85652; 86038; 86140; 86200; 86431; 86812

== ENCOUNTER → 2023-01-21 | Outpatient (CLI) | payer MEDICARE ==
--- NOTE | 2023-01-24 07:51 | MM ---
Reason for Exam: Screening (asymptomatic). Last mammogram was performed 1 year(s) and 1 month(s) ago. Patient History: Menarche at age 12. Patient has no children. Right ovary removed at age 28. Postmenopausal. Currently using Estrogen, beginning at age 54 for 2 years. Currently using Progesterone, beginning at age 54 for 2 years. Patient used Hormonal Contraceptives for 8 years. 09/06/2018, Benign Core Biopsy on the left side. Paternal cousin had breast cancer, age 28. Maternal cousin had breast cancer. Maternal aunt had breast cancer, age 58. Maternal aunt had ovarian cancer at or over age 50. Risk Values: Bita 5 year model risk: 2.4%. NCI Lifetime model risk: 8.9%. Prior Study Comparison: 02/18/2016 Bilateral Screening Mammogram, [facility]. 02/18/2017 Bilateral Screening Mammogram, [facility]. 07/25/2018 Bilateral Screening Mammogram, [facility]. 09/06/2018 Left Diagnostic Mammogram, [facility]. 09/17/2019 Bilateral Diagnostic Mammogram, [facility]. 11/28/2020 Bilateral Screening Mammogram, [facility]. 12/16/2021 Bilateral Screening Mammogram, [facility]. Tissue Density: The breast tissue is heterogeneously dense. This may lower the sensitivity of mammography. Findings: Analyzed By CAD. Left breast biopsy clip and changes. There is no suspicious group of microcalcifications or new suspicious mass in either breast. Overall Assessment: Benign, BI-RAD 2 Management: Screening Mammogram of both breasts in [address] [facility] will attempt to contact patient to return for supplemental views and ultrasound if indicated. Patient should continue monthly self-breast exams. A clinical breast exam by your physician is recommended on an annual basis. This exam should not preclude additional follow-up of suspicious palpable abnormalities. Note on Bita scores and lifetime risk: 1. A Bita score greater than 3% is considered moderate risk. If this is the case, consider specialist referral to assess eligibility for a risk reducing agent. 2. If overall lifetime risk for the development of breast cancer is 20% or higher, the patient may qualify for future screening with alternating mammogram and breast MRI. Electronically signed and approved by: Myron Jarquin DO
== END | disposition home or self-care (01) ==
LOC: RADMAMWWP 10:35
PROVIDERS: ATTEND Obstetrics & Gynecology
DX: Z12.31 Encounter for screening mammogram for malignant neoplasm of breast (principal); Z78.0 Asymptomatic menopausal state; Z80.3 Family history of malignant neoplasm of breast; Z80.41 Family history of malignant neoplasm of ovary
CPT/HCPCS: 77063; 77067

== ENCOUNTER → 2024-02-29 | Outpatient (CLI) | payer MEDICARE ==
--- NOTE | 2024-03-02 08:15 | MM ---
Reason for Exam: Screening (asymptomatic). Last mammogram was performed 1 year(s) and 1 month(s) ago. Patient History: Menarche at age 12. Patient has no children. Right ovary removed at age 28. Postmenopausal. Currently using Estrogen, beginning at age 54 for 2 years. Currently using Progesterone, beginning at age 54 for 2 years. Patient used Hormonal Contraceptives for 8 years. 09/06/2018, Benign Core Biopsy on the left side. Paternal cousin had breast cancer, age 28. Maternal cousin had breast cancer. Maternal aunt had breast cancer, age 58. Maternal aunt had ovarian cancer at or over age 50. Risk Values: Bita 5 year model risk: 2.4%. NCI Lifetime model risk: 8.6%. Prior Study Comparison: 11/28/2020 Bilateral Screening Mammogram, [facility]. 12/16/2021 Bilateral Screening Mammogram, [facility]. 01/21/2023 Bilateral MG 3D screening mammo w/cad, [facility]. Tissue Density: The breasts are heterogeneously dense, which may obscure small masses. Findings: Analyzed By CAD. No suspicious grouped calcifications. There is increasing density in the upper outer quadrant of the left breast. Spot compression views recommended. Previous biopsy clip in the left breast with benign-appearing calcifications. Overall Assessment: Incomplete: need additional imaging evaluation, BI-RAD 0 Management: Diagnostic Mammogram of the left breast. . Patient should continue monthly self-breast exams. A clinical breast exam by your physician is recommended on an annual basis. This exam should not preclude additional follow-up of suspicious palpable abnormalities. Note on Bita scores and lifetime risk: 1. A Bita score greater than 3% is considered moderate risk. If this is the case, consider specialist referral to assess eligibility for a risk reducing agent. 2. If overall lifetime risk for the development of breast cancer is 20% or higher, the patient may qualify for future screening with alternating mammogram and breast MRI. Electronically signed and approved by: Dago Haider M.D. Radiologis
== END | disposition home or self-care (01) ==
LOC: RADMAMWWP 11:26
PROVIDERS: ATTEND Obstetrics & Gynecology
DX: Z12.31 Encounter for screening mammogram for malignant neoplasm of breast (principal); Z78.0 Asymptomatic menopausal state; Z80.3 Family history of malignant neoplasm of breast; R92.333 Mammographic heterogeneous density, bilateral breasts
CPT/HCPCS: 77063; 77067

== ENCOUNTER → 2024-03-07 | Outpatient (CLI) | payer MEDICARE ==
--- NOTE | 2024-03-07 08:59 | MM ---
Reason for Exam: Additional evaluation requested from abnormal screening. Last screening mammogram was performed less than 1 month ago. Patient History: Menarche at age 12. Patient has no children. Right ovary removed at age 28. Postmenopausal. Currently using Estrogen, beginning at age 54 for 2 years. Currently using Progesterone, beginning at age 54 for 2 years. Patient used Hormonal Contraceptives for 8 years. 09/06/2018, Benign Core Biopsy on the left side. Paternal cousin had breast cancer, age 28. Maternal cousin had breast cancer. Maternal aunt had breast cancer, age 58. Maternal aunt had ovarian cancer at or over age 50. Risk Values: Bita 5 year model risk: 2.4%. NCI Lifetime model risk: 8.6%. Prior Study Comparison: 12/16/2021 Bilateral Screening Mammogram, [facility]. 01/21/2023 Bilateral MG 3D screening mammo w/cad, [facility]. 02/29/2024 Bilateral MG 3D screening mammo w/cad, [facility]. Tissue Density: Left: There are scattered areas of fibroglandular density. Findings: Analyzed By CAD. No persistent mass or distortion. Overall Assessment: Negative, BI-RAD 1 Management: Screening Mammogram of both breasts in 1 year. . Results were given to the patient verbally at the time of exam. Patient should continue monthly self-breast exams. A clinical breast exam by your physician is recommended on an annual basis. This exam should not preclude additional follow-up of suspicious palpable abnormalities. Note on Bita scores and lifetime risk: 1. A Bita score greater than 3% is considered moderate risk. If this is the case, consider specialist referral to assess eligibility for a risk reducing agent. 2. If overall lifetime risk for the development of breast cancer is 20% or higher, the patient may qualify for future screening with alternating mammogram and breast MRI. Electronically signed and approved by: Js Kenny M.D. Radiologis
== END | disposition home or self-care (01) ==
LOC: RADMAMWWP 08:25
PROVIDERS: ATTEND Obstetrics & Gynecology
DX: R92.8 Other abnormal and inconclusive findings on diagnostic imaging of breast (principal); R92.323 Mammographic fibroglandular density, bilateral breasts; Z78.0 Asymptomatic menopausal state; Z80.3 Family history of malignant neoplasm of breast; Z80.41 Family history of malignant neoplasm of ovary
CPT/HCPCS: 77065; G0279; 77061